=== PATIENT | male | born 1975 | race Hispanic/Latino ===

== ENCOUNTER 2018-05-25 10:06 | Observation (INO) | payer SELFPAY ==
[2018-05-25] MEDS ORDERED: ASPIRIN 81 MG CHEWABLE TABLET ONE (10:33)
[2018-05-25] MEDS ORDERED: NA CHLORIDE 0.9% 1,000 ML ONE (10:33)
[2018-05-25 10:51] LABS: Absolute Lymphocytes (CBC) 2.3 K/uL (0.7-4.9); Absolute Monocytes 1.1 K/uL (0.1-1.3); Absolute Neutrophil 6.9 K/uL (1.8-8.0); Basophils % 0.7 % (0-1.3); Eosinophils % 1.1 % (0-4.4); Hematocrit 37.7 % (39.6-49.0); Lymphocytes % 22.3 % (15.3-44.8); MCH 28.9 pg (27.0-35.0); MCV 84.5 fL (80-100); MPV 8.4 fL (7.6-11.3); Monocytes % 10.2 % (3.3-12.3); RBC Red Blood Cell Count 4.46 M/uL (4.33-5.43)
[2018-05-25] MEDS ORDERED: KETOROLAC 30 MG/ML INJ ONE (10:54)
[2018-05-25 10:57] LABS: Protime INR 1.13
[2018-05-25 11:15] LABS: Albumin 3.6 g/dL (3.4-5.0); Bilirubin Direct 0.1 mg/dL (0-0.2); Bilirubin Total 0.5 mg/dL (0.2-1.0); CKMB Creatine Kinase MB 1.4 ng/mL (0.3-3.6); Magnesium 2.3 mg/dL (1.8-2.4); Potassium 3.4 mmol/L (3.5-5.1); Protein, Total 7.8 g/dL (6.4-8.2)
[2018-05-25 11:52] LABS: Barbiturates NEGATIVE (NEGATIVE); Benzodiazepines NEGATIVE (NEGATIVE); Cocaine NEGATIVE (NEGATIVE); METHAMPHETAM NEGATIVE (NEGATIVE); Methadone NEGATIVE (NEGATIVE); Opiates NEGATIVE (NEGATIVE); Phencyclidine NEGATIVE (NEGATIVE); THC Cannibis POSITIVE (NEGATIVE)
--- NOTE | 2018-05-25 11:57 | RAD REPORT ---
EXAM DESCRIPTION: Joanie Single View05/25/2018 10:47 am CLINICAL HISTORY: Chest pain COMPARISON: November 2017 FINDINGS: The lungs appear clear of acute infiltrate. The heart is normal size IMPRESSION: No acute abnormalities displayed
[2018-05-25] MEDS ORDERED: MORPHINE 4 MG/ML SYR ONE (12:01)
[2018-05-25] MEDS ORDERED: ONDANSETRON 4 MG/2 ML VIAL ONE (12:01)
[2018-05-25] MEDS ORDERED: POTASSIUM 25 MEQ EFFERV TAB ONE (12:24)
[2018-05-25] MEDS ORDERED: ENOXAPARIN 60 MG/0.6 ML SQ ONE (12:24)
[2018-05-25 12:34] LABS: Urine Blood TRACE (NEG); Urine Glucose NEGATIVE (NEG); Urine Protein 1+ (NEG); Urine Specific Gravity >1.030 (1.005-1.030); Urine pH 5.5 (5.0-7.0)
--- NOTE | 2018-05-25 12:39 | EKG ---
Test Date: 2018-05-25 Test Time: 10:39:01 Mule Developer: BETTE MEASUREMENT RESULTS: Intervals: Rate: 59 HI: 136 QRSD: 84 QT: 398 QTc: 394 [place]: P: 30 HI: 136 QRS: 25 T: 36 INTERPRETIVE STATEMENTS: Sinus bradycardia ST elevation, probably due to early repolarization Borderline ECG Compared to ECG 12/16/2016 12:27:35 ST (T wave) deviation now present Early repolarization now present Sinus rhythm no longer present Electronically Signed On 05-25-18 12:39:04 CDT by Sudarshan Metz
--- NOTE | 2018-05-25 13:19 | ER ---
Nurse's Notes [facility] Name: Bill Goodrich Age: 42 yrs Sex: Male : 1975 Arrival Date: 05/25/2018 Time: 10:08 Bed 30 Private MD: Devang Rodriguez V Diagnosis: Other chest pain;Hypokalemia Presentation: 05/25 10:11 Presenting complaint: Patient states: Right sided chest pain, radiates to right arm, jl7 since 829. Transition of care: patient was not received from another setting of care. Onset of symptoms was May 25, 2018 at 08:30. Risk Assessment: Do you want to hurt yourself or someone else? Patient reports no desire to harm self or others. Initial Sepsis Screen: Does the patient meet any 2 criteria? No. Patient's initial sepsis screen is negative. Does the patient have a suspected source of infection? No. Patient's initial sepsis screen is negative. Care prior to arrival: None. 10:11 Method Of Arrival: Ambulatory jl7 10:11 Acuity: PRISCILA 3 jl7 Historical: - Allergies: 10:12 NKA; jl7 - PMHx: 10:12 crohns disease; UC; jl7 - PSHx: 10:12 Appendectomy; jl7 - Immunization history:: Adult Immunizations up to date. - Social history:: Smoking status: Patient/guardian denies using tobacco. - Ebola Screening: : No symptoms or risks identified at this time. - Family history:: not pertinent. Screenin:35 Abuse screen: Denies threats or abuse. Denies injuries from another. Nutritional hb screening: No deficits noted. Tuberculosis screening: No symptoms or risk factors identified. Fall Risk None identified. Assessment: 10:30 General: Appears in no apparent distress. Pain: Complains of pain in anterior aspect of hb right upper chest Pain radiates to right arm Pain currently is 7 out of 10 on a pain scale. Quality of pain is described as pressure, Pain began 1 day ago. Neuro: Level of Consciousness is awake, alert, obeys commands, Oriented to person, place, time, situation. Cardiovascular: Heart tones S1 S2 present Capillary refill < 3 seconds Patient's skin is warm and dry. Respiratory: Airway is patent Trachea midline Respiratory effort is even, unlabored, Respiratory pattern is regular, symmetrical, Breath sounds are clear bilaterally. GI: No signs and/or symptoms were reported involving the gastrointestinal system. : No signs and/or symptoms were reported regarding the genitourinary system. EENT: No signs and/or symptoms were reported regarding the EENT system. Derm: No signs and/or symptoms reported regarding the dermatologic system. Skin is intact, is healthy with good turgor. Musculoskeletal: No signs and/or symptoms reported regarding the musculoskeletal system. 14:45 Reassessment: Patient appears in no apparent distress at this time. No changes from aj previously documented assessment. Patient and/or family updated on plan of care and expected duration. Pain level reassessed. Patient is alert, oriented x 3, equal unlabored respirations, skin warm/dry/pink. Vital Signs: 10:12 BP 115 / 75; Pulse 77; Resp 16 S; Temp 98.4(O); Pulse Ox 100% on R/A; Weight 65.77 kg jl7 (R); Height 5 ft. 5 in. (165.10 cm) (R); Pain 7/10; 11:34 BP 103 / 71; Pulse 56; Resp 19; Pulse Ox 99% on R/A; aj 12:51 BP 120 / 88; Pulse 64; Resp 19; Pulse Ox 100% on R/A; aj 14:14 BP 101 / 73; Pulse 94; Resp 19; Pulse Ox 98% on R/A; aj 10:12 Body Mass Index 24.13 (65.77 kg, 165.10 cm) jl7 ED Course: 10:08 Patient arrived in ED. mr 10:08 Devang Rodriguez MD is Private Physician. mr 10:12 Triage completed. jl7 10:12 Arm band placed on right wrist. jl7 10:18 Ty Dutton MD is Attending Physician. tierra 10:20 Patient has correct armband on for positive identification. Placed in gown. Bed in low hb position. Call light in reach. Side rails up X 1. motor racer on. Pulse ox on. NIBP on. 10:30 Inserted saline lock: 18 gauge in left antecubital area, using aseptic technique. Blood hb collected. Patient maintains SpO2 saturation greater than 95% on room air. 10:38 Klaudia Oneill RN is Primary Nurse. aj 10:43 EKG done, by global position system technician. reviewed by Ty Dutton MD. tc 10:47 XRAY Chest (1 view) In Process Unspecified. EDMS 11:56 EKG done, by global position system technician. reviewed by Ty Dutton MD Repeat EKG. at1 13:18 Devang Rodriguez MD is Hospitalizing Provider. tierra 13:46 Echo w/ Doppler Sent. aj 14:45 No provider procedures requiring assistance completed. Patient admitted, IV remains in aj place. intact. Administered Medications: 10:34 Drug: Aspirin 162 mg Route: PO; hb 10:56 Follow up: Response: No adverse reaction aj 10:34 Drug: NS 0.9% 1000 ml Route: IV; Rate: 125 ml/hr; Site: left antecubital; hb 10:54 Drug: TORadol 30 mg Route: IVP; Site: left antecubital; aj 12:38 Follow up: Response: No adverse reaction aj 11:58 Drug: morphine 4 mg Route: IVP; Site: left antecubital; aj 12:38 Follow up: Response: Pain is decreased aj 11:58 Drug: Zofran 4 mg Route: IVP; Site: left antecubital; aj 12:38 Follow up: Response: Pain is decreased aj 12:38 Drug: Potassium Effervescent Tablet 25 mEq Route: PO; aj 12:54 Follow up: Response: No adverse reaction aj 12:38 Drug: Lovenox 1 mg/kg Route: Sub-Q; Site: left upper abdomen; aj 12:54 Follow up: Response: No adverse reaction aj Outcome: 13:19 Decision to Hospitalize by Provider. tierra 14:45 Admitted to Med/surg accompanied by tech, via wheelchair, room 208, with chart, Report aj called to Sherri 14:45 Condition: good 14:45 Instructed on the need for admit. 15:27 Patient left the ED. iw Signatures: Dispatcher [employer] EDMS Klaudia Oneill, RN Ty Shultz MD MD cha Rivera, Maria mr Williams, Irene, RN RN iw gonzales, Amanda, hvac residential service technician EKG Tat1 Saba Adame, hvac residential service technician EKG Ttc Lexis Barnes RN RN hb Leal, Jahala RN RN jl7
--- NOTE | 2018-05-25 13:19 | EDPHYS ---
Physician Documentation [facility] Name: Bill Goodrich Age: 42 yrs Sex: Male : 1975 Arrival Date: 05/25/2018 Time: 10:08 Bed 30 Private MD: Devang Rodriguez V ED Physician Ty Dutton HPI: 05/25 10:40 This 42 yrs old Male presents to ER via Ambulatory with complaints of Chest tierra Pain, Numbness Of Arm. 10:40 The patient or guardian reports chest pain that is located primarily in the anterior tierra chest wall, right. Onset: 1 day(s) ago. The pain radiates to the right arm. Associated signs and symptoms: Pertinent positives:. The chest pain is described as aching, dull. Modifying factors: The symptoms are alleviated by remaining still, the symptoms are aggravated by movement, palpation of area. The patient has not experienced similar symptoms in the past. Historical: - Allergies: 10:12 NKA; jl7 - PMHx: 10:12 crohns disease; UC; jl7 - PSHx: 10:12 Appendectomy; jl7 - Immunization history:: Adult Immunizations up to date. - Social history:: Smoking status: Patient/guardian denies using tobacco. - Ebola Screening: : No symptoms or risks identified at this time. - Family history:: not pertinent. ROS: 10:40 Constitutional: Negative for fever, chills, and weight loss, Eyes: Negative for injury, tierra pain, redness, and discharge, ENT: Negative for injury, pain, and discharge, Neck: Negative for injury, pain, and swelling, Respiratory: Negative for shortness of breath, cough, wheezing, and pleuritic chest pain, Abdomen/GI: Negative for abdominal pain, nausea, vomiting, diarrhea, and constipation, Back: Negative for injury and pain, : Negative for injury, bleeding, discharge, and swelling, MS/Extremity: Negative for injury and deformity, Skin: Negative for injury, rash, and discoloration, Neuro: Negative for headache, weakness, numbness, tingling, and seizure, Psych: Negative for depression, anxiety, suicide ideation, homicidal ideation, and hallucinations, Allergy/Immunology: Negative for hives, rash, and allergies, Endocrine: Negative for neck swelling, polydipsia, polyuria, polyphagia, and marked weight changes, Hematologic/Lymphatic: Negative for swollen nodes, abnormal bleeding, and unusual bruising. 10:40 Cardiovascular: Positive for chest pain, of the right clavicle, anterior aspect of right upper chest and right breast. Exam: 10:40 Constitutional: This is a well developed, well nourished patient who is awake, alert, tierra and in no acute distress. Head/Face: Normocephalic, atraumatic. Eyes: Pupils equal round and reactive to light, extra-ocular motions intact. Lids and lashes normal. Conjunctiva and sclera are non-icteric and not injected. Cornea within normal limits. Periorbital areas with no swelling, redness, or edema. ENT: Nares patent. No nasal discharge, no septal abnormalities noted. Tympanic membranes are normal and external auditory canals are clear. Oropharynx with no redness, swelling, or masses, exudates, or evidence of obstruction, uvula midline. Mucous membranes moist. Neck: Trachea midline, no thyromegaly or masses palpated, and no cervical lymphadenopathy. Supple, full range of motion without nuchal rigidity, or vertebral point tenderness. No Meningismus. Chest/axilla: Normal chest wall appearance and motion. Nontender with no deformity. No lesions are appreciated. Cardiovascular: Regular rate and rhythm with a normal S1 and S2. No gallops, murmurs, or rubs. Normal PMI, no JVD. No pulse deficits. Respiratory: Lungs have equal breath sounds bilaterally, clear to auscultation and percussion. No rales, rhonchi or wheezes noted. No increased work of breathing, no retractions or nasal flaring. Abdomen/GI: Soft, non-tender, with normal bowel sounds. No distension or tympany. No guarding or rebound. No evidence of tenderness throughout. Back: No spinal tenderness. No costovertebral tenderness. Full range of motion. Skin: Warm, dry with normal turgor. Normal color with no rashes, no lesions, and no evidence of cellulitis. MS/ Extremity: Pulses equal, no cyanosis. Neurovascular intact. Full, normal range of motion. Neuro: Awake and alert, GCS 15, oriented to person, place, time, and situation. Cranial nerves II-XII grossly intact. Motor strength 5/5 in all extremities. Sensory grossly intact. Cerebellar exam normal. Normal gait. Psych: Awake, alert, with orientation to person, place and time. Behavior, mood, and affect are within normal limits. Vital Signs: 10:12 BP 115 / 75; Pulse 77; Resp 16 S; Temp 98.4(O); Pulse Ox 100% on R/A; Weight 65.77 kg 7 (R); Height 5 ft. 5 in. (165.10 cm) (R); Pain 7/10; 11:34 BP 103 / 71; Pulse 56; Resp 19; Pulse Ox 99% on R/A; aj 12:51 BP 120 / 88; Pulse 64; Resp 19; Pulse Ox 100% on R/A; aj 14:14 BP 101 / 73; Pulse 94; Resp 19; Pulse Ox 98% on R/A; aj 10:12 Body Mass Index 24.13 (65.77 kg, 165.10 cm) 7 MDM: 10:18 Patient medically screened. [place] 10:48 Data reviewed: vital signs, nurses notes, lab test result(s), EKG, radiologic studies, tierra plain films. 05/25 10:20 Order name: Basic Metabolic Panel; Complete Time: 11:55 [place] 05/25 10:20 Order name: CBC with Diff; Complete Time: 11:55 [place] 05/25 10:20 Order name: Ckmb; Complete Time: 11:55 [place] 05/25 10:20 Order name: CPK; Complete Time: 11:55 [place] 05/25 10:20 Order name: LFT's; Complete Time: 11:55 [place] 05/25 10:20 Order name: Magnesium; Complete Time: 11:55 [place] 05/25 10:20 Order name: NT PRO-BNP; Complete Time: 11:55 [place] 05/25 10:20 Order name: PT-INR; Complete Time: 11:55 [place] 05/25 10:20 Order name: Ptt, Activated; Complete Time: 11:55 [place] 05/25 10:20 Order name: Troponin (emerg Dept Use Only); Complete Time: 11:55 [place] 05/25 10:20 Order name: UDS; Complete Time: 11:55 [place] 05/25 10:20 Order name: Lipase; Complete Time: 11:55 [place] 05/25 10:39 Order name: D-Dimer; Complete Time: 11:55 [place] 05/25 12:07 Order name: Urine Dipstick--Ancillary (enter results); Complete Time: 13:17 05/25 10:20 Order name: XRAY Chest (1 view); Complete Time: 13:17 [place] 05/25 10:48 Order name: Echo w/ Doppler; Complete Time: 14:52 [place] 05/25 13:17 Order name: Ckmb; Complete Time: 14:52 [place] 05/25 13:17 Order name: Creatine Phosphokinase; Complete Time: 14:52 [place] 05/25 13:17 Order name: Troponin (emerg Dept Use Only); Complete Time: 14:52 [place] 05/25 13:26 Order name: Basic Metabolic Panel EDMS 05/25 13:26 Order name: Basic Metabolic Panel EDMS 05/25 13:26 Order name: CBC with Automated Diff EDMS 05/25 13:26 Order name: CBC with Automated Diff EDMS 05/25 13:26 Order name: Troponin I EDMS 05/25 13:26 Order name: Troponin I EDMS 05/25 13:26 Order name: Troponin I EDMS 05/25 10:20 Order name: EKG; Complete Time: 10:20 [place] 05/25 10:20 Order name: Cardiac monitoring; Complete Time: 10:27 [place] 05/25 10:20 Order name: EKG - Nurse/Tech; Complete Time: 10:27 [place] 05/25 10:20 Order name: IV Saline Lock; Complete Time: 10:27 [place] 05/25 10:20 Order name: Labs collected and sent; Complete Time: 10:27 [place] 05/25 10:20 Order name: O2 Per Protocol; Complete Time: 10:27 [place] 05/25 10:20 Order name: O2 Sat Monitoring; Complete Time: 10:27 [place] 05/25 10:20 Order name: Urine Dipstick-Ancillary (obtain specimen); Complete Time: 11:54 [place] 05/25 11:58 Order name: EKG Electrocardiogram EDMS 05/25 13:17 Order name: Repeat Cardiac Enzymes at: 115pm; Complete Time: 13:27 [place] 05/25 13:24 Order name: CONS Physician Consult EDMS 05/25 13:26 Order name: Regular EDMS 05/25 13:26 Order name: EKG Electrocardiogram EDMS 05/25 13:26 Order name: EKG Electrocardiogram EDMS 05/25 13:26 Order name: EKG Electrocardiogram EDMS 08/13 13:26 Order name: EKG Electrocardiogram EDMS Administered Medications: 10:34 Drug: Aspirin 162 mg Route: PO; hb 10:56 Follow up: Response: No adverse reaction aj 10:34 Drug: NS 0.9% 1000 ml Route: IV; Rate: 125 ml/hr; Site: left antecubital; hb 10:54 Drug: TORadol 30 mg Route: IVP; Site: left antecubital; aj 12:38 Follow up: Response: No adverse reaction aj 11:58 Drug: morphine 4 mg Route: IVP; Site: left antecubital; aj 12:38 Follow up: Response: Pain is decreased aj 11:58 Drug: Zofran 4 mg Route: IVP; Site: left antecubital; aj 12:38 Follow up: Response: Pain is decreased aj 12:38 Drug: Potassium Effervescent Tablet 25 mEq Route: PO; aj 12:54 Follow up: Response: No adverse reaction aj 12:38 Drug: Lovenox 1 mg/kg Route: Sub-Q; Site: left upper abdomen; aj 12:54 Follow up: Response: No adverse reaction aj Disposition: 05/25/18 13:19 Hospitalization ordered by Devang Rodriguez for Observation. Preliminary diagnosis are Other chest pain, Hypokalemia. - Bed requested for Telemetry/MedSurg (observation). - Status is Observation. iw - Condition is Stable. - Problem is new. - Symptoms have improved. UTI on Admission? No Signatures: Dispatcher [employer] EDMS LidaFaby vera Klaudia Spaulding RN RN aj Anderson, Corey, MD MD cha Williams, Irene, RN RN iw Baxter, Heather, RN RN hb Leal, Jahala RN RN jl7 Corrections: (The following items were deleted from the chart) 14:11 13:19 Hospitalization Ordered by Devang Rodriguez MD for Observation. Preliminary diagnosis bd is Other chest pain; Hypokalemia. Bed requested for Telemetry/MedSurg (observation). Status is Observation. Condition is Stable. Problem is new. Symptoms have improved. UTI on Admission? No. tierra 15:27 14:11 05/25/2018 13:19 Hospitalization Ordered by Devang Rodriguez MD for Observation. iw Preliminary diagnosis is Other chest pain; Hypokalemia. Bed requested for Telemetry/MedSurg (observation). Status is Observation. Condition is Stable. Problem is new. Symptoms have improved. UTI on Admission? No. bd
[2018-05-25] MEDS ORDERED: ACETAMINOPHEN 500 MG TAB PO PRN (13:23)
[2018-05-25] MEDS ORDERED: ONDANSETRON 4 MG/2 ML VIAL IV PRN (13:23)
[2018-05-25 13:52] LABS: CKMB Creatine Kinase MB 1.1 ng/mL (0.3-3.6)
--- NOTE | 2018-05-25 17:26 | EKG ---
Test Date: 2018-05-25 Test Time: 11:54:02 Supervising Airplane Pilot: PIERRE MEASUREMENT RESULTS: Intervals: Rate: 55 [place]: 138 QRSD: 88 QT: 430 QTc: 411 [place]: P: 32 [place]: 138 QRS: 30 T: 36 INTERPRETIVE STATEMENTS: Sinus bradycardia ST elevation, probably due to early repolarization Borderline ECG Compared to ECG 05/25/2018 10:39:01 No significant changes Electronically Signed On 05-25-18 17:26:16 CDT by Sudarshan Metz
--- NOTE | 2018-05-25 17:51 | ECHO ---
HEIGHT: 5 ft 5 in WEIGHT: 145 lb 0 oz DATE OF STUDY: 05/25/[address]: 2-DIMENSIONAL: YES M.MODE: YES DOPPLER: YES COLOR FLOW: YES TDS: NO PORTABLE: NO DEFINITY: NO BUBBLE STUDY: NO DIAGNOSIS: CHEST PAIN CARDIAC HISTORY: CATHERIZATION: NO SURGERY: NO PROSTHETIC VALVE: NO PACEMAKER: NO MEASUREMENTS (cm) DIASTOLIC (NORMALS) SYSTOLIC (NORMALS) IVSd 0.8 (0.6-1.2) LA Diam 3.7 (1.9-4.0) LVEF 50% LVIDd 4.6 (3.5-5.7) LVIDs 3.4 (2.0-3.5) %FS 25% LVPWd 0.9 (0.6-1.2) Ao Diam 2.6 (2.0-3.7) 2 DIMENSIONAL ASSESSMENT: RIGHT ATRIUM: NORMAL LEFT ATRIUM: NORMAL RIGHT VENTRICLE: NORMAL LEFT VENTRICLE: NORMAL TRICUSPID VALVE: NORMAL MITRAL VALVE: NORMAL PULMONIC VALVE: NORMAL AORTIC VALVE: NORMAL PERICARDIAL EFFUSION: NONE AORTIC ROOT: NORMAL LEFT VENTRICULAR WALL MOTION: NORMAL. DOPPLER/COLOR FLOW: PHYSIOLOGICAL TRICUSPID REGURGITATION. NORMAL RIGHT VENTRICULAR SYSTOLIC PRESSURE. COMMENTS: NORMAL 2D ECHOCARDIOGRAM WITH DOPPLER. TECHNOLOGIST: ELISE BUSH [facility]
[2018-05-25 18:03] VITALS: BMI 24.0
--- NOTE | 2018-05-25 18:11 | P.HP ---
Certification for Inpatient Patient admitted to: Observation With expected LOS: <2 Midnights Practitioner: I am a practitioner with admitting privileges, knowledge of patient current condition, hospital course, and medical plan of care. Services: Services provided to patient in accordance with Admission requirements found in Title 42 Section 412.3 of the Code of Federal Regulations Patient History Date of Service: 05/25/18 Reason for admission: CHEST PAIN History of Present Illness: MR SOTO IS A NONSMOKER WHO COMES WITH CHEST PAIN R SIDE OFF AND ON 3 TIMES AND THEN WENTTO L SIDE. 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 Allergies No Known Allergies Allergy (Verified 05/25/18 16:34) Home Medications: NK [No Home Meds] 12/16/16 - Past Medical/Surgical History Has patient received pneumonia vaccine in the past: No Diabetic: No -: appendectomy - Family History Mother -: Diabetes Father History Unknown: Yes - Social History Smoking Status: Never smoker Alcohol use: Yes CD- Drugs: No Caffeine use: Yes Place of Residence: Home Review of Systems 10-point ROS is otherwise unremarkable General: Weakness (R HAND WHEN HE HAD PAIN RADIATION TO IT) Physical Examination - Vital Signs Temperature: 97.5 F Blood Pressure: 105/68 Pulse: 61 Respirations: 16 Pulse Ox (%): 99 - Physical Exam General: Alert, In no apparent distress HEENT: Atraumatic, PERRLA, Mucous membr. moist/pink, EOMI, Sclerae nonicteric Neck: Supple, 2+ carotid pulse no bruit, No LAD, Without JVD or thyroid abnormality Respiratory: Clear to auscultation bilaterally, Normal air movement Cardiovascular: Regular rate/rhythm, Normal S1 S2 Gastrointestinal: Normal bowel sounds, No tenderness Musculoskeletal: No tenderness Integumentary: No rashes Neurological: Normal gait, Normal speech, Normal strength at 5/5 x4 extr, Normal tone, Normal affect Lymphatics: No axilla or inguinal lymphadenopathy - Studies Laboratory Data (last 24 hrs) 05/25/18 10:30: PT 13.3 H, INR 1.13, APTT 33.1 05/25/18 10:30: WBC 10.5, Hgb 12.9 L, Hct 37.7 L, Plt Count 504 H 05/25/18 10:30: Sodium 140, Potassium 3.4 L, BUN 11, Creatinine 1.00, Glucose 89 , Magnesium 2.3, Total Bilirubin 0.5, AST 15, ALT 16, Alkaline Phosphatase 70, Lipase 144 Assessment and Plan - Problems (Diagnosis) (1) Chest pain Current Visit: Yes Status: Acute Plan: ATYPICAL BUT RADAITED TO ARM AND THEN TO L SIDE. ST TEST IN AM NOT SMOKER BUT USED [place] (2) Right hand weakness Current Visit: Yes Status: Acute Plan: MRI BRAIN WITHOUT CONTRAST FAMILY NOTED RIGHT EYE PTOSIS AND HE HAD R HAND WEAKNESS. - Advance Directives Does patient have a Living Will: No Does patient have a Durable POA for Healthcare: No
[2018-05-25] MEDS: ENOXAPARIN 60 MG/0.6 ML SQ SCH (21:00)
--- NOTE | 2018-05-25 21:21 | RAD REPORT ---
EXAM DESCRIPTION: MRI - Brain Wo Cont - 05/25/2018 8:25 pm CLINICAL HISTORY: Right hand weakness, possible CVA COMPARISON: None. TECHNIQUE: Sagittal T1-weighted images were obtained along with axial PD, heavily T2-weighted and T2 -FLAIR images. Axial DWI and ADC mapping sequences were also obtained along with coronal heavily T2-w eighted images. FINDINGS: No intracranial hemorrhage, mass or acute infarction. There is no edema or shift of midlin e structures. No extra-axial fluid collections. Deshpande-matter/white matter junction is preserved. Signa l voids are seen as a normal finding in the major intracranial vessels. No atrophy or chronic ischemi c change. No vasculitis or other brain parenchymal abnormality. No globe or orbital content abnormality. Sella and suprasellar regions are normal. Mastoid air cells are clear. Mucosal thickening changes in the bilateral maxillary sinuses. No acute air-fluid level. IMPRESSION: No infarction or acute intracranial finding. Chronic sinus disease.
[2018-05-25] MEDS: POTASSIUM CL SA 10 MEQ TAB PO SCH (21:30)
--- NOTE | 2018-05-25 23:03 | CON ---
Identification: A 42-year-old man. Chief Complaint: Chest pain. History Of Present Illness: Mr. Goodrich had sharp, stabbing type chest pain first in the right pectora l region, later in the left pectoral region. There was no syncope, nausea, vomiting. There was shor tness of breath. No pleuritic component to the pain. He came to the emergency room where EKGs show what looks like early repolarization. Cardiac enzymes are normal. An echocardiogram is normal. The patient has had an appendectomy. He has a history of Crohn disease. He has never had diabetes, hyp ertension, dyslipidemia. Uses no tobacco. Rare alcohol. No illegal drugs. We do not have any old lipid panels on him. There is no history of myocardial infarction, stroke, or any known vascular dis ease. Physical Examination: General: He is alert, oriented, pleasant, not in distress. Vital Signs: 5 feet 5 inches, 144 pounds. HEENT: Normal. Neck: Carotids, no bruit. Lungs: Clear. Cardiac: Normal. Abdomen: Soft. Extremities: Normal. Assessment And Plan: I will recommend that we do a Cardiolite stress test and lipid panel. If we do not see anything there, he can be considered a patient who is safe to discharge home. DARNELL/JOSE Voice ID: [id number] Report ID: [id number]
[2018-05-26 05:57] LABS: Absolute Lymphocytes (CBC) 2.3 K/uL (0.7-4.9); Absolute Monocytes 1.3 K/uL (0.1-1.3); Absolute Neutrophil 7.6 K/uL (1.8-8.0); Basophils % 0.7 % (0-1.3); Eosinophils % 1.3 % (0-4.4); Hematocrit 36.1 % (39.6-49.0); Lymphocytes % 20.1 % (15.3-44.8); MCH 28.3 pg (27.0-35.0); MCV 85.9 fL (80-100); MPV 8.8 fL (7.6-11.3); Monocytes % 11.5 % (3.3-12.3)
[2018-05-26 06:05] LABS: BUN Blood Urea Nitrogen 14 mg/dL (7-18); Bicarbonate 28 mmol/L (21-32); Glucose Level 105 mg/dL (74-106); HDL Cholesterol 29 mg/dL (40-60); LDL Cholesterol, Calculated 35 (<130); Potassium 3.7 mmol/L (3.5-5.1); Sodium Level 142 mmol/L (136-145)
[2018-05-26] MEDS ORDERED: ASPIRIN EC 81 MG TAB PO SCH (09:00)
[2018-05-26] MEDS: ENOXAPARIN 60 MG/0.6 ML SQ SCH (09:00)
[2018-05-26] MEDS: POTASSIUM CL SA 10 MEQ TAB PO SCH (09:43)
[2018-05-26] MEDS: MORPHINE 4 MG/ML SYR IV PRN ×2 (09:53→15:31)
[2018-05-26 11:39] VITALS: O2SAT 95
--- NOTE | 2018-05-26 13:53 | RAD REPORT ---
EXAM DESCRIPTION: NM - Rest Stress Cardiac Imaging - 05/26/2018 1:42 pm CLINICAL HISTORY: Chest pain. COMPARISON: None. TECHNIQUE: The patient was administered approximately 10mCi of Tc 99m Sestamibi prior to resting SPE CT imaging of the heart. The patient was then administered approximately 30 mCi of Tc 99m Sestamibi f ollowing exercise or pharmacologic stress. Multiplanar SPECT images were reviewed. FINDINGS: There is uniformity of radiotracer uptake involving the entire left ventricular myocardium on rest and stress images. The left ventricular ejection fraction equals 53% IMPRESSION: Negative for a myocardial perfusion defect
--- NOTE | 2018-05-26 16:42 | TREADMILL ---
70% H.R.: 123 85% H.R.: 150 90% H.R.: 158 100% H.R.: 176 DX: CHEST PAIN Date of Study: 05/26/2018 Ht: 5 5 Wt: 144 lb 3.2 oz Consulting Physician: KARLI MEDICATIONS: TYLENOL, ASPIRIN, LOVENOX, ZOFRAN, KLOR-CON. HISTORY: 42 YEAR OLD MALE, COMPLAINTS OF CHEST PAIN. MEDICAL HISTORY: CROHNS, ULCERATIVE COLITIS PHYSICIAL EXAMINATION: RESTING B.P.: 118/83 RESTING H.R.: 72 RESTING EKG: NORMAL PROTOCOL: COLLEEN CARDIOLITE EXERCISE TIME: 13:17 MAXIMUM HEART RATE: 157 89 % OF PREDICTED B.P. AT PEAK STRESS: 137/84 H.R. AT 1 MINUTE POST EXERCISE: 111 IMPRESSION: STRESS TEST STOPPED DUE TO FATIGUE AND TARGET HEART RATE RECHED PER PROTOCOL, CARDIOLITE INJECTED, SEE NUCLEAR MED REPORT. NO SUPRAVENTRICULAR TACHYCARDIA, NO VENTRICULAR TACHYCARDIA, 1 PREMATURE VENTRICULAR COMPLEX. DENIED CHEST PAIN. NEGATIVE STRESS TEST
[2018-05-26 18:26] VITALS: BP 102/56; TEMP 98
== END 2018-05-26 18:00 | disposition home or self-care (01) ==
LOC: ER 10:06 → ERHOLD 13:20 → 2ND 14:46
PROVIDERS: ADMIT Internal Medicine; ATTEND Internal Medicine
DX: R07.89 Other chest pain (principal); E87.6 Hypokalemia; R00.1 Bradycardia, unspecified; R53.1 Weakness; Z87.19 Personal history of other diseases of the digestive system
CPT/HCPCS: 36415; 70551; 71045; 78452; 80048; 80061; 80076; 80307; 81003; 82550; 82553; 83690; 83735; 83880; 84484; 85025; 85379; 85610; 85730; 93005; 93017; 93306; 96372; 96374; 96375; 99285; A9500; G0378; J1650; J2405; J7030

== ENCOUNTER 2022-02-05 21:18 | Inpatient (IN) | payer SELFPAY ==
--- NOTE | 2022-02-05 21:54 | RAD REPORT ---
EXAM DESCRIPTION: RAD - Chest Single View - 02/05/2022 9:46 pm CLINICAL HISTORY: COUGH COMPARISON: Chest Single View dated 05/25/2018; Chest Pa And Lat (2 Views) dated 11/21/2017; CHEST SING LE VIEW dated 09/01/2015 FINDINGS: Lines: None. Lungs: No evidence of edema or pneumonia. Pleural: No significant pleural effusions or pneumothorax. Cardiac: The heart size is within normal limits. Bones: No acute fractures. Other: IMPRESSION: No acute cardiopulmonary disease.
[2022-02-05] MEDS ORDERED: ASPIRIN 81 MG CHEWABLE TABLET ONE (21:57)
[2022-02-05] MEDS ORDERED: NA CHLORIDE 0.9% 1,000 ML ONE (21:57)
[2022-02-05 22:01] LABS: Absolute Lymphocytes (CBC) 2.8 K/uL (0.7-4.9); Hematocrit 43.5 % (39.6-49.0); Lymphocytes % 21.4 % (15.3-44.8); MPV 7.9 fL (7.6-11.3); RBC Red Blood Cell Count 5.06 M/uL (4.33-5.43)
[2022-02-05 22:07] LABS: Protime INR 1.09
[2022-02-05 22:26] LABS: AST/SGOT 13 U/L (15-37); Albumin 3.7 g/dL (3.4-5.0); Alkaline Phosphatase 73 U/L (45-117); BUN Blood Urea Nitrogen 8 mg/dL (7-18); Bicarbonate 26 mmol/L (21-32); Bilirubin Total 0.2 mg/dL (0.2-1.0); Lipase 183 U/L (73-393); Magnesium 1.9 mg/dL (1.8-2.4); Potassium 3.3 mmol/L (3.5-5.1); Protein, Total 7.6 g/dL (6.4-8.2); Sodium Level 140 mmol/L (136-145)
[2022-02-05 22:30] LABS: ALT/SGPT 18 U/L (12-78); Bilirubin Direct < 0.1 mg/dL (0-0.2); Glucose Level 119 mg/dL (74-106); NT PRO-BNP 25 pg/mL (<125); Troponin High Sensitivity 3.3 pg/mL (<58.9)
[2022-02-05] MEDS ORDERED: MORPHINE 2 MG/ML SYR ONE (22:46)
[2022-02-05] MEDS ORDERED: POTASSIUM 25 MEQ EFFERV TAB ONE (22:46)
[2022-02-05] MEDS ORDERED: FAMOTIDINE 20 MG/2 ML VIAL IV ONE (22:46)
[2022-02-05] MEDS ORDERED: ONDANSETRON 4 MG/2 ML VIAL ONE (22:46)
--- NOTE | 2022-02-05 23:06 | ER ---
Nurse's Notes [facility] Name: Bill Goodrich Age: 46 yrs Sex: Male : 1975 Arrival Date: 02/05/2022 Time: 21:20 Bed 15 Private MD: Diagnosis: Chest pain, unspecified;Hypokalemia;Left sided colitis without complications Presentation: 02/05 21:44 Chief complaint: Patient states: Sudden onset chest pain radiating down left arm that lp1 began about 30-45 min ago; Reports LLQ abdominal pain. Coronavirus screen: At this time, the client does not indicate any symptoms associated with coronavirus-19. Ebola Screen: No symptoms or risks identified at this time. Initial Sepsis Screen: Does the patient meet any 2 criteria? No. Patient's initial sepsis screen is negative. Does the patient have a suspected source of infection? No. Patient's initial sepsis screen is negative. Risk Assessment: Do you want to hurt yourself or someone else? Patient reports no desire to harm self or others. Onset of symptoms was February 05, 2022. 21:44 Method Of Arrival: Ambulatory lp1 21:44 Acuity: PRISCILA 3 lp1 Historical: - Allergies: 21:47 NKA; lp1 - Home Meds: 21:47 None [Active]; lp1 - PMHx: 21:47 crohns disease; UC; lp1 - PSHx: 21:47 Appendectomy; lp1 - Immunization history:: Adult Immunizations up to date. - Social history:: Smoking status: Patient denies any tobacco usage or history of. - Family history:: not pertinent. Screenin/27 03:41 Abuse screen: Denies threats or abuse. Denies injuries from another. Nutritional sm5 screening: No deficits noted. Tuberculosis screening: No symptoms or risk factors identified. Fall Risk None identified. Assessment: 02/05 22:30 General: Appears uncomfortable, Behavior is cooperative. Pain: Complains of pain in sm5 left upper quadrant and chest Pain radiates to anterior aspect of left shoulder Pain began suddenly. Neuro: No deficits noted. Level of Consciousness is awake, alert, obeys commands, Oriented to person, place, time, situation. Cardiovascular: Reports chest pain, Capillary refill < 3 seconds Patient's skin is warm and dry. Rhythm is sinus rhythm. 23:45 Reassessment: No changes from previously documented assessment. Patient and/or family 5 updated on plan of care and expected duration. Pain level reassessed. 02/06 00:43 Reassessment: pt refusing covid swab. sm5 01:25 Reassessment: No changes from previously documented assessment. Patient is alert, 5 oriented x 3, equal unlabored respirations, skin warm/dry/pink. 03:42 Reassessment: Patient states symptoms have improved. 5 Vital Signs: 02/05 21:44 BP 116 / 86; Pulse 70; Resp 15; Temp 98.2(O); Pulse Ox 100% on R/A; Weight 68.04 kg lp1 (R); Height 5 ft. 5 in. (165.10 cm); Pain 7/10; 22:38 BP 116 / 82; Pulse 58; Resp 14; Pulse Ox 96% on R/A; sm5 23:32 BP 133 / 95; Pulse 64; Resp 16; Pulse Ox 99% on R/A; sm5 02/06 03:47 BP 118 / 72; Pulse 62; Resp 16; Pulse Ox 96% on R/A; sm5 02/05 21:44 Body Mass Index 24.96 (68.04 kg, 165.10 cm) lp1 ED Course: 02/05 21:20 Patient arrived in ED. bp1 21:26 Ty Dutton MD is Attending Physician. tierra 21:37 Laney Quick RN is Primary Nurse. sm5 21:44 Arm band placed on. lp1 21:45 Inserted saline lock: 20 gauge in left antecubital area, using aseptic technique. Blood 5 collected. 21:47 Triage completed. lp1 21:47 Patient has correct armband on for positive identification. Placed in gown. Bed in low lp1 position. Call light in reach. laboratory monitor on. Pulse ox on. NIBP on. 21:47 Patient maintains SpO2 saturation greater than 95% on room air. lp1 21:48 XRAY Chest (1 view) In Process Unspecified. EDMS 23:05 Devang Rodriguez MD is Hospitalizing Provider. [facility] 02/06 02:21 COVID-19/FLU A+B (Document "Date of Onset" if Symptomatic) Sent. 5 04:23 No provider procedures requiring assistance completed. Patient admitted, IV remains in [address] Administered Medications: 02/05 21:55 Drug: Aspirin Chewable Tablet 162 mg Route: PO; 5 22:52 Follow up: Response: No adverse reaction 5 21:55 Drug: NS 0.9% 1000 ml Route: IV; Rate: 125 ml/hr; Site: left antecubital; 5 22:40 CANCELLED (Duplicate Order): Lopressor (metoprolol TARTRATE)) 25 mg PO once tierra 22:50 Drug: Potassium Effervescent Tablet 25 mEq Route: PO; 5 02/06 03:50 Follow up: Response: No adverse reaction [facility] 02/05 22:51 Drug: Pepcid (famotidine) 20 mg Route: IVP; Site: left antecubital; 5 22:51 Drug: morphine 2 mg Route: IVP; Site: left antecubital; 5 02/06 03:50 Follow up: Response: Pain is decreased 5 02/05 22:51 Drug: Zofran (Ondansetron) 4 mg Route: IVP; Site: left antecubital; 5 02/06 03:50 Follow up: Response: Nausea is decreased 5 00:39 Drug: Lovenox (enoxaparin) 1 mg/kg Route: Sub-Q; Site: right upper abdomen; 5 03:50 Follow up: Response: No adverse reaction 5 00:39 Drug: Flagyl (metroNIDAZOLE) 500 mg Volume: 100 ml; Route: IVPB; Rate: 200 ml/hr; sm5 Infused Over: 30 mins; Site: left antecubital; 01:28 Follow up: IV Status: Completed infusion; IV Intake: 100ml 5 00:39 Drug: SOLU-Medrol (methylPrednisoLONE) 125 mg Route: IVP; Site: left antecubital; 5 03:49 Follow up: Response: No adverse reaction 5 02:39 Drug: Cipro (ciprofloxacin) 400 mg Volume: 200 ml; Route: IVPB; Infused Over: 60 mins; 5 Site: left antecubital; 03:49 Follow up: IV Status: Completed infusion; IV Intake: 200ml 5 Intake: 01:28 IV: 100ml; Total: 100ml. 5 03:49 IV: 200ml; Total: 300ml. [facility] Outcome: 02/05 23:06 Decision to Hospitalize by Provider. tierra 02/06 04:24 Admitted to Med/surg accompanied by nurse, via wheelchair, with chart. sm5 Condition: stable Instructed on the need for admit. 04:24 Patient left the ED. sm5 Signatures: Dispatcher [employer] Ty Mendez MD MD cha Pena, Laura, RN RN lp1 Elaine Salmon Sarah, RN RN sm5
--- NOTE | 2022-02-05 23:06 | EDPHYS ---
Physician Documentation [facility] Name: Bill Goodrich Age: 46 yrs Sex: Male : 1975 Arrival Date: 02/05/2022 Time: 21:20 Bed 15 Private MD: ED Physician Ty Dutton HPI: 02/05 22:33 This 46 yrs old Male presents to ER via Ambulatory with complaints of Chest tierra Pain > 30 y/o. 22:33 The patient or guardian reports chest pain that is located primarily in the substernal tierra area. Onset: just prior to arrival. The pain radiates to the left arm. Associated signs and symptoms: Pertinent positives: shortness of breath. The chest pain is described as a heaviness. Duration: The patient or guardian reports multiple episodes, with no pattern. Modifying factors: The symptoms are alleviated by nothing. the symptoms are aggravated by nothing. Severity of pain: At its worst the pain was mild just prior to arrival, in the emergency department the pain has improved mildly. The patient has experienced similar episodes in the past, a few times. Historical: - Allergies: 21:47 NKA; lp1 - Home Meds: 21:47 None [Active]; lp1 - PMHx: 21:47 crohns disease; UC; lp1 - PSHx: 21:47 Appendectomy; lp1 - Immunization history:: Adult Immunizations up to date. - Social history:: Smoking status: Patient denies any tobacco usage or history of. - Family history:: not pertinent. ROS: 22:33 Constitutional: Negative for fever, chills, and weight loss, Eyes: Negative for injury, tierra pain, redness, and discharge, ENT: Negative for injury, pain, and discharge, Neck: Negative for injury, pain, and swelling, Respiratory: Negative for shortness of breath, cough, wheezing, and pleuritic chest pain, Back: Negative for injury and pain, : Negative for injury, bleeding, discharge, and swelling, MS/Extremity: Negative for injury and deformity, Skin: Negative for injury, rash, and discoloration, Neuro: Negative for headache, weakness, numbness, tingling, and seizure, Psych: Negative for depression, anxiety, suicide ideation, homicidal ideation, and hallucinations, Allergy/Immunology: Negative for hives, rash, and allergies, Endocrine: Negative for neck swelling, polydipsia, polyuria, polyphagia, and marked weight changes, Hematologic/Lymphatic: Negative for swollen nodes, abnormal bleeding, and unusual bruising. 22:33 Cardiovascular: Positive for chest pain, of the chest. 22:33 Abdomen/GI: Positive for abdominal pain, of the left upper quadrant. Exam: 22:33 Constitutional: This is a well developed, well nourished patient who is awake, alert, tierra and in no acute distress. Head/Face: Normocephalic, atraumatic. Eyes: Pupils equal round and reactive to light, extra-ocular motions intact. Lids and lashes normal. Conjunctiva and sclera are non-icteric and not injected. Cornea within normal limits. Periorbital areas with no swelling, redness, or edema. ENT: Nares patent. No nasal discharge, no septal abnormalities noted. Tympanic membranes are normal and external auditory canals are clear. Oropharynx with no redness, swelling, or masses, exudates, or evidence of obstruction, uvula midline. Mucous membranes moist. Neck: Trachea midline, no thyromegaly or masses palpated, and no cervical lymphadenopathy. Supple, full range of motion without nuchal rigidity, or vertebral point tenderness. No Meningismus. Chest/axilla: Normal chest wall appearance and motion. Nontender with no deformity. No lesions are appreciated. Cardiovascular: Regular rate and rhythm with a normal S1 and S2. No gallops, murmurs, or rubs. Normal PMI, no JVD. No pulse deficits. Respiratory: Lungs have equal breath sounds bilaterally, clear to auscultation and percussion. No rales, rhonchi or wheezes noted. No increased work of breathing, no retractions or nasal flaring. Back: No spinal tenderness. No costovertebral tenderness. Full range of motion. Male : Normal genitalia with no discharge or lesions. Skin: Warm, dry with normal turgor. Normal color with no rashes, no lesions, and no evidence of cellulitis. MS/ Extremity: Pulses equal, no cyanosis. Neurovascular intact. Full, normal range of motion. Neuro: Awake and alert, GCS 15, oriented to person, place, time, and situation. Cranial nerves II-XII grossly intact. Motor strength 5/5 in all extremities. Sensory grossly intact. Cerebellar exam normal. Normal gait. Psych: Awake, alert, with orientation to person, place and time. Behavior, mood, and affect are within normal limits. 22:33 ECG was reviewed by the Attending Physician. 22:33 Abdomen/GI: Inspection: abdomen appears normal, Bowel sounds: normal, Palpation: mild abdominal tenderness, in the left upper quadrant, Liver: no appreciated palpable abnormalities, Hernia: not appreciated. Vital Signs: 21:44 BP 116 / 86; Pulse 70; Resp 15; Temp 98.2(O); Pulse Ox 100% on R/A; Weight 68.04 kg lp1 (R); Height 5 ft. 5 in. (165.10 cm); Pain 7/10; 22:38 BP 116 / 82; Pulse 58; Resp 14; Pulse Ox 96% on R/A; sm5 23:32 BP 133 / 95; Pulse 64; Resp 16; Pulse Ox 99% on R/A; sm5 02/06 03:47 BP 118 / 72; Pulse 62; Resp 16; Pulse Ox 96% on R/A; sm5 02/05 21:44 Body Mass Index 24.96 (68.04 kg, 165.10 cm) lp1 MDM: 02/05 21:26 Patient medically screened. tierra 22:36 Differential diagnosis: acute myocardial infarction, acute pericarditis, anxiety, chest tierra wall pain, costochondritis, pancreatitis, pleurisy, pulmonary embolus, stable angina, thoracic aortic disection, unstable angina. HEART Score: History: Moderately Suspicious (1), ECG: Normal (0), Age: > 45 and < 65 years (1), Risk Factors: 1 or 2 risk factors (1), [+ Family HX] Troponin: < or = 1 x Normal Limit (0). The patient was given aspirin in the Emergency Department. The patient's deep vein thrombosis risk score was calculated as follows: Total Score: 0. This patient was found to be at low risk for a deep vein thrombosis by using the Well's assessment criteria. The patient's pulmonary embolism risk score was calculated as follows: Total Score: 0-2 points. This patient was found to be at low risk for a pulmonary embolism by using the Well's assessment criteria. ETHEL Risk Score: TOTAL SCORE = 0. Data reviewed: vital signs, nurses notes, lab test result(s), EKG, radiologic studies, CT scan, plain films. Data interpreted: laboratory monitor: rate is 70 beats/min, rhythm is regular, Pulse oximetry: on room air is 100 %. Test interpretation: by ED physician or midlevel provider: ECG, plain radiologic studies. Counseling: I had a detailed discussion with the patient and/or guardian regarding: the historical points, exam findings, and any diagnostic results supporting the discharge/admit diagnosis, lab results, radiology results, the need for further work-up and treatment in the hospital. 02/05 21: Order name: Basic Metabolic Panel; Complete Time: 22:41 [facility] 02/05 21: Order name: CBC with Diff; Complete Time: 22:30 [facility] 02/05 21: Order name: LFT's; Complete Time: 22:41 [facility] 02/05 21: Order name: Magnesium; Complete Time: 22:41 [facility] 02/05 21: Order name: NT PRO-BNP; Complete Time: 22:41 [facility] 02/05 21:27 Order name: PT-INR; Complete Time: 22:30 [facility] 02/05 21:27 Order name: Troponin HS; Complete Time: 22:41 [facility] 02/05 21:27 Order name: Lipase; Complete Time: 22:41 [facility] 02/05 23:47 Order name: COVID-19/FLU A+B (Document "Date of Onset" if Symptomatic) [facility] 02/06 00:04 Order name: Fecal Leukocyte Stain [facility] 02/06 00:04 Order name: Stool Culture [facility] 02/06 03:14 Order name: COVID-19/FLU A+B [facility] 02/06 04:24 Order name: Fecal Leukocyte Stain [facility] 02/06 04:24 Order name: Stool Culture [facility] 02/05 21:27 Order name: XRAY Chest (1 view); Complete Time: 22:30 [facility] 02/05 21:27 Order name: EKG; Complete Time: 21:28 [facility] 02/05 21:27 Order name: Cardiac monitoring; Complete Time: 21:43 [facility] 02/05 22:32 Order name: CT Aorta for Dissection [facility] 02/05 23:10 Order name: CONS Physician Consult [facility] 02/05 21:27 Order name: EKG - Nurse/Tech; Complete Time: 21:43 [facility] 02/05 21:27 Order name: IV Saline Lock; Complete Time: 22:03 [facility] 04/26 21:27 Order name: Labs collected and sent; Complete Time: 22:03 [facility] 02/05 Order name: O2 Per Protocol; Complete Time: : [facility] 02/05 Order name: O2 Sat Monitoring; Complete Time: : [facility] EC:33 Rate is 74 beats/min. Rhythm is regular. QRS [place] is Normal. [place] interval is normal. QRS tierra interval is normal. QT interval is normal. No Q waves. T waves are Normal. No ST changes noted. Clinical impression: NSR w/ Non-specific ST/T Changes and No evidence of ischemia. Interpreted by me. Reviewed by me. Administered Medications: : Drug: Aspirin Chewable Tablet 162 mg Route: PO; sm5 22:52 Follow up: Response: No adverse reaction 5 :55 Drug: NS 0.9% 1000 ml Route: IV; Rate: 125 ml/hr; Site: left antecubital; sm5 22:40 CANCELLED (Duplicate Order): Lopressor (metoprolol TARTRATE)) 25 mg PO once [facility] 22:50 Drug: Potassium Effervescent Tablet 25 mEq Route: PO; 5 02/06 03:50 Follow up: Response: No adverse reaction 02/05 22:51 Drug: Pepcid (famotidine) 20 mg Route: IVP; Site: left antecubital; sm5 22:51 Drug: morphine 2 mg Route: IVP; Site: left antecubital; 5 02/06 03:50 Follow up: Response: Pain is decreased 02/05 22:51 Drug: Zofran (Ondansetron) 4 mg Route: IVP; Site: left antecubital; 5 02/06 03:50 Follow up: Response: Nausea is decreased sm5 00:39 Drug: Lovenox (enoxaparin) 1 mg/kg Route: Sub-Q; Site: right upper abdomen; sm5 03:50 Follow up: Response: No adverse reaction sm5 00:39 Drug: Flagyl (metroNIDAZOLE) 500 mg Volume: 100 ml; Route: IVPB; Rate: 200 ml/hr; sm5 Infused Over: 30 mins; Site: left antecubital; 01:28 Follow up: IV Status: Completed infusion; IV Intake: 100ml sm5 00:39 Drug: SOLU-Medrol (methylPrednisoLONE) 125 mg Route: IVP; Site: left antecubital; sm5 03:49 Follow up: Response: No adverse reaction 5 02:39 Drug: Cipro (ciprofloxacin) 400 mg Volume: 200 ml; Route: IVPB; Infused Over: 60 mins; sm5 Site: left antecubital; 03:49 Follow up: IV Status: Completed infusion; IV Intake: 200ml 5 Disposition Summary: 02/05/22 23:06 Hospitalization Ordered Hospitalization Status: Observation tierra Provider: Devang Rodriguez cha Location: Telemetry/MedSurg (observation) tierra Condition: Stable tierra Problem: new tierra Symptoms: have improved tierra Bed/Room Type: Standard [facility] Room Assignment: 228(02/06/22 03:22) mw Diagnosis - Chest pain, unspecified tierra - Hypokalemia tierra - Left sided colitis without complications tierra Forms: - Medication Reconciliation Form tierra - SBAR form tierra Signatures: Dispatcher [employer] EDMarie Rajan RN RN mw Anderson, Corey, MD MD cha Pena, Laura, RN RN lp1 Laney Quick RN RN sm5 Corrections: (The following items were deleted from the chart) 02/05 22:40 22:32 Lopressor (metoprolol TARTRATE)) 25 mg PO once ordered. tierra mayorga 02/06 03:22 02/05 23:06 tierra colón
[2022-02-06] MEDS ORDERED: METHYLPREDNISOLONE 125 MG INJ ONE (00:32)
[2022-02-06] MEDS ORDERED: ENOXAPARIN 60 MG/0.6 ML SQ ONE (00:33)
[2022-02-06] MEDS ORDERED: METRONIDAZOLE 500mg IVPB 500 MG/100 ML BAG IV ONE (00:33)
[2022-02-06] MEDS ORDERED: NA CHLORIDE 0.9% 1,000 ML IV SCH (01:00)
[2022-02-06] MEDS ORDERED: CIPROFLOXACIN 400mg IV 400 MG/200 ML BAG IV ONE (02:35)
[2022-02-06] MEDS ORDERED: ENOXAPARIN 80 MG/0.8 ML SQ ONE (02:57)
[2022-02-06 03:14] LABS: SARS-COV-2 RT PCR NEGATIVE (NEGATIVE)
[2022-02-06] MEDS ORDERED: ONDANSETRON 4 MG/2 ML VIAL IV PRN (04:22)
[2022-02-06] MEDS ORDERED: ACETAMINOPHEN 500 MG TAB PO PRN (04:22)
[2022-02-06] MEDS ORDERED: MORPHINE 4 MG/ML SYR IV PRN (04:22)
[2022-02-06] MEDS ORDERED: ACETAMINOPHEN 325 MG TABLET PO PRN (05:00)
[2022-02-06] MEDS: METHYLPREDNISOLONE 40 MG INJ IV SCH ×3 (05:48→17:11)
[2022-02-06] MEDS: METRONIDAZOLE 500mg IVPB 500 MG/100 ML BAG IV SCH ×3 (05:48→17:11)
[2022-02-06 06:22] LABS: Absolute Lymphocytes (CBC) 1.1 K/uL (0.7-4.9); Hematocrit 43.8 % (39.6-49.0); Lymphocytes % 8.2 % (15.3-44.8); MPV 8.6 fL (7.6-11.3); RBC Red Blood Cell Count 4.96 M/uL (4.33-5.43)
[2022-02-06 06:23] LABS: BUN Blood Urea Nitrogen 9 mg/dL (7-18); Bicarbonate 25 mmol/L (21-32); Glucose Level 145 mg/dL (74-106); Potassium 3.7 mmol/L (3.5-5.1); Sodium Level 139 mmol/L (136-145)
[2022-02-06 06:35] VITALS: BMI 25.0
[2022-02-06] MEDS ORDERED: CIPROFLOXACIN 400mg IV 400 MG/200 ML BAG IV SCH (09:00)
[2022-02-06] MEDS ORDERED: FAMOTIDINE 20 MG/2 ML VIAL IV SCH (09:00)
[2022-02-06 09:21] VITALS: O2SAT 98
[2022-02-06 09:25] LABS: Platelet Estimate INCR; White Blood Cell Scan OK (OK)
[2022-02-06 09:32] LABS: Blood Morphology Comment NOT SEEN (NOT SEEN)
[2022-02-06] MEDS: POTASSIUM 25 MEQ EFFERV TAB PO SCH ×2 (09:52→15:46)
[2022-02-06] MEDS: ASPIRIN EC 81 MG TAB PO SCH (09:53)
--- NOTE | 2022-02-06 13:21 | ECHO ---
HEIGHT: 5 ft 5 in WEIGHT: 150 lb 0 oz DATE OF STUDY: 02/06/[address]: Robert Villarreal MD 2-DIMENSIONAL: YES M.MODE: YES DOPPLER: YES COLOR FLOW: YES TDS: NO PORTABLE: YES DEFINITY: NO BUBBLE STUDY: NO DIAGNOSIS: CHEST PAIN CARDIAC HISTORY: CATHERIZATION: NO SURGERY: NO PROSTHETIC VALVE: NO PACEMAKER: NO MEASUREMENTS (cm) DIASTOLIC (NORMALS) SYSTOLIC (NORMALS) IVSd 0.9 (0.6-1.2) LA Diam 2.8 (1.9-4.0) LVEF 69% LVIDd 3.5 (3.5-5.7) LVIDs 2.2 (2.0-3.5) %FS 38% LVPWd 0.9 (0.6-1.2) Ao Diam 2.6 (2.0-3.7) 2 DIMENSIONAL ASSESSMENT: RIGHT ATRIUM: NORMAL LEFT ATRIUM: NORMAL RIGHT VENTRICLE: NORMAL LEFT VENTRICLE: NORMAL TRICUSPID VALVE: NORMAL MITRAL VALVE: NORMAL PULMONIC VALVE: NORMAL AORTIC VALVE: NORMAL PERICARDIAL EFFUSION: NONE AORTIC ROOT: NORMAL LEFT VENTRICULAR WALL MOTION: NORMAL. DOPPLER/COLOR FLOW: NORMAL. COMMENTS: NORMAL 2D ECHO WITH DOPPLER. NO WALL MOTION ABNORMALITY. NO EFFUSION. TECHNOLOGIST: ANA RESENDEZ
[2022-02-06 13:29] VITALS: TEMP 97.6
--- NOTE | 2022-02-06 15:23 | RAD REPORT ---
EXAM DESCRIPTION: CT - Angio Aorta For Dissection - 02/06/2022 7:00 am CLINICAL HISTORY: 46 years, Male, chest pain COMPARISON: None. TECHNIQUE: Multiple transaxial tomograms from the thoracic and abdominal aorta from the lung apex ba ses to the ischial tuberosities performed before and after the administration of 100 cc of Omnipaque 350 at a rate of 5 cc per second for complete opacification of the thoracic, abdominal aorta and david c arteries utilizing 2 mm slice thickness at 2 mm slice thickness. 2-D and 3-D multiplanar reformats, volume rendering technique and maximum intensity projection images were generated and reviewed. This exam was performed according to our departmental dose-optimization protocol, which includes auto mated exposure control, adjustment of the mA and/or kV according to patient size and/or use of iterat oskar reconstruction technique. FINDINGS: Thoracic aorta: The thoracic aorta demonstrate to be within normal limits. No definitive significant dissection and/o r aneurysm allowing for the motion at the ascending thoracic aorta/aortic root. There is normal branc angelita pattern of the great vessels. No significant stenosis/or occlusion within the proximal aspect. Abdominal aorta: The abdominal aorta demonstrate to be normal. There is no evidence for aneurysm/or dissection. Bilate ral iliac arteries demonstrate to be normal. There is normal branching pattern of the visceral branch es with no evidence for significant stenosis/or occlusion. There is single bilateral renal arteries w ith no abnormalities. Chest: The lung parenchyma demonstrate to be clear. No symptom pulmonary nodules/or masses are identi fied. Minimal dependent atelectatic changes posterior CP angles. The trachea mainstem bronchus demonstrate to be unremarkable. There is no pleural and/or pericardial effusions. The heart is normal in size. No significant coronary artery calcifications. There is no evidence for significant filling defects central pulmonary arteries to suggest significant pulmonary embolus. There is no significant mediastinal and/or hilar lymphadenopathy. The axillary regions demonstrate to be clear. The bone windows demonstrate no significant skeletal lesions. Abdomen and pelvis: The liver demonstrate slight decreased attenuation suggesting mild fatty infiltra tion. Milvia liver, gallbladder, spleen, adrenal glands, pancreas demonstrate to be unremarkable. The kidneys demonstrate normal uptake of contrast media. There is no evidence for nephrolithiasis and /or hydronephrosis. Grossly the unopacified stomach, small bowel demonstrate to be within normal limits. There is no evid ence for bowel dilatation/or free air. The large bowel demonstrate fluid-filled within the right site colon. There is mucosal enhancement of the distal descending colon, sigmoid colon and rectum suggesting the possibility of bacterial coliti s and/or regional enteritis. The bladder is normal. The prostate gland is prominent perhaps related to BPH. There is no retroper itoneal lymphadenopathy. There is no evidence for ascites. The bone windows demonstrate unremarkable. IMPRESSION: No evidence for significant dissection and/or aneurysm thoracic or abdominal aorta. Mucosal enhancement of the distal descending colon, sigmoid colon and rectum suggesting the possibili ty of bacterial colitis, less likely pseudomembranous colitis and/or regional enteritis. Prominent prostate gland perhaps related to BPH. Electronically signed by: Carlos Chaidez MD 02/05/2022 11:47 PM CDT Due to temporary technical issues with the PACS/Fluency reporting system, reports are being signed by the in house radiologists without review as a courtesy to insure prompt reporting. The interpreting radiologist is fully responsible for the content of the report.
[2022-02-06 16:46] VITALS: BP 115/70
--- NOTE | 2022-02-06 17:08 | P.SSS ---
Patient History Date of Service: 02/06/22 Reason for admission: CHEST PAIN AND ARM BURNING History of Present Illness: DARLENE HAS CROHN'S DISEASE AND HAS NOT TO ANY DOCTOR FOR LAST 4 YEARS. HE COMES TO ER AND CLAIMS ME HIS DOCTOR. HE WAS ADMITTED AT NIGHT BY DR. SWAN. HE HAS PAIN IN CHEST AND L ARM BURNING FOR A DAY. Sunny CACERES SAW HIM AND ADVISED OUTPATIENT STRESS TEST. HIS ECHO IS GOOD. CE ARE NEGATIVE AND EKG IS NORMAL. HE HAS MILD HIGH WBC COUNT AND COLITIS LIKE PICTURE ON CT SCAN WITHOUT ANY ABDOMEN SYMPTOMS. I GAVE HIM CEFTIN FOR A FEW DAYS HAS MILD HIGH WBC COUNT. HE WILL COME TO OFFICE IN A WEEK AND WILL REPEAT COUNTS. HE MAY NOT COME HE HAS NO INSURANCE. Allergies No Known Allergies Allergy (Verified 05/25/18 16:34) Home medications list reviewed: Yes Home Medications: Cefuroxime [Ceftin] 250 mg PO BID #14 tab 02/06/22 - Past Medical/Surgical History Has patient received pneumonia vaccine in the past: No Diabetic: No -: Crohns -: Ulcerative Colitis -: appendectomy - Family History Mother -: Hypertension, Diabetes Sister -: Other (see notes) Notes: one sister has graves, one sister needs regular blood transfusions but pt is unsure of reason - Social History Smoking Status: Never smoker Alcohol use: Yes CD- Drugs: No Caffeine use: Yes Place of Residence: Home Physical Examination - Vital Signs Temperature: 97.6 F Blood Pressure: 115/70 Pulse: 77 Respirations: 18 Pulse Ox (%): 92 - Physical Exam General: Alert, Oriented x3 HEENT: Atraumatic, PERRLA, Mucous membr. moist/pink, EOMI, Sclerae nonicteric Neck: Supple, 2+ carotid pulse no bruit, No LAD, Without JVD or thyroid abnormality Respiratory: Clear to auscultation bilaterally Cardiovascular: Regular rate/rhythm, Normal S1 S2 Gastrointestinal: Normal bowel sounds, No tenderness Musculoskeletal: No tenderness Integumentary: No rashes Neurological: Normal gait, Normal speech, Normal strength at 5/5 x4 extr, Normal tone, Normal affect Lymphatics: No axilla or inguinal lymphadenopathy - Studies Laboratory Data (last 24 hrs) 02/06/22 05:25: Sodium 139, Potassium 3.7, BUN 9, Creatinine 0.84, Glucose 145 H 02/06/22 05:25: WBC 12.9 H, Hgb 14.4, Hct 43.8, Plt Count 461 H 02/05/22 21:50: PT 12.0, INR 1.09 02/05/22 21:50: WBC 13.0 H, Hgb 14.8, Hct 43.5, Plt Count 452 H 02/05/22 21:50: Sodium 140, Potassium 3.3 L, BUN 8, Creatinine 1.07, Glucose 119 H, Magnesium 1.9, Total Bilirubin 0.2, AST 13 L, ALT 18, Alkaline Phosphatase 73, Lipase 183 - Diagnosis (Problem(s)) (1) Leukocytosis Current Visit: Yes Status: Acute Plan: CEFTIN PO BID. (2) Chest pain Onset Date: 05/26/18 Current Visit: No Status: Acute Plan: ATYPICAL PAIN. CHEST PAIN. DR. CACERES IS NOT IMPRESSED. - Disposition Disposition: ROUTINE DISCHARGE Condition: FAIR
[2022-02-06] MEDS ORDERED: FAMOTIDINE 20 MG TAB PO SCH (21:00)
[2022-02-06] MEDS ORDERED: ENOXAPARIN 60 MG/0.6 ML SQ SCH (21:00)
--- NOTE | 2022-02-07 00:30 | CON ---
Date of Consultation: 02/06/2022 The patient was admitted on 02/05/[address] Rodriguez's service with chest pain and hypokalemia. History Of Present Illness: Mr. Goodrich is 46 and has a history of Crohn disease, otherwise no past me dical history. He came in with left shoulder and right shoulder pain, midepigastric pain described a s tightness and discomfort without any nausea, vomiting, diaphoresis, PND, orthopnea, pedal edema, pa lpitations, or syncope. Symptoms occurred at rest and when he wakes up in the morning. Denied any e xertional symptoms. Denied any fever or chills. He is not taking any medications for his Crohn's at this point. Past Medical History: Include Crohn disease. Allergies: NONE. Medications: None. Review of Systems: Negative. Social History: Negative. Family History: Noncontributory. Physical Examination: Vital Signs: Stable, afebrile. HEENT: Negative. Neck: Supple. No bruit. Chest: Clear. Cardiac: Exam reveals a regular rhythm and rate. No murmurs, gallops, or rubs. Abdomen: Benign. Extremities: Revealed no clubbing, cyanosis, or edema. Data Reviewed: Diagnostic data within normal limits. Impression And Plan: Atypical chest pain, possibly related to Crohn disease or an inflammatory proce ss, reflux disease is possible. Echocardiogram is normal. I am comfortable with Mr. Goodrich going henry e and I will arrange for him to have an outpatient MPI at his convenience. The case was discussed wi Dr. Rodriguez. STU/BROCKL Voice ID: [id number] Report ID: [id number]
== END 2022-02-06 18:17 | disposition home or self-care (01) | DRG 313 ==
LOC: ER 21:18 → ERHOLD 23:07 → 2ND 02-06 03:57 → OBSVTOIN 02-06 08:00
PROVIDERS: ADMIT Internal Medicine; ATTEND Internal Medicine
DX: R07.89 Other chest pain (principal); K52.9 Noninfective gastroenteritis and colitis, unspecified; E87.6 Hypokalemia; Z20.822 Contact with and (suspected) exposure to COVID-19
CPT/HCPCS: 0240U; 36415; 71045; 71275; 74175; 80048; 80076; 83690; 83735; 83880; 84484; 85025; 85610; 93005; 93306; 96365; 96367; 96372; 96375; 99285; G0378; J0744; J1650; J2270; J2405; J2920; J2930; J3490; J7030; Q9967

== ENCOUNTER 2022-09-16 09:49 | Emergency (ER) | payer SELFPAY ==
--- NOTE | 2022-09-16 10:44 | RAD REPORT ---
EXAM DESCRIPTION: US - Extremity Venous Uni Ltd - 09/16/2022 10:36 am CLINICAL HISTORY: PAIN COMPARISON: None. TECHNIQUE: Real-time sonographic evaluation of the right lower extremity deep venous systems was per formed. FINDINGS: Normal compressibility, flow augmentation, phasic flow and spontaneous flow are identified in the right lower extremity common femoral, superficial femoral, popliteal and posterior tibial vei ns. No intraluminal filling defects seen. IMPRESSION: No DVT in the right lower extremity.
--- NOTE | 2022-09-16 10:51 | ER ---
Nurse's Notes [facility] Name: Bill Goodrich Age: 46 yrs Sex: Male : 1975 Arrival Date: 09/16/2022 Time: 09:52 Bed IW2 Private MD: Diagnosis: Pain in right lower leg Presentation: 09/16 10:15 Chief complaint: Patient states: Sudden pain to right lower leg while walking, denies jl7 trauma. Coronavirus screen: At this time, the client does not indicate any symptoms associated with coronavirus-19. Ebola Screen: No symptoms or risks identified at this time. Initial Sepsis Screen: Does the patient meet any 2 criteria? No. Patient's initial sepsis screen is negative. Does the patient have a suspected source of infection? No. Patient's initial sepsis screen is negative. Risk Assessment: Do you want to hurt yourself or someone else? Patient reports no desire to harm self or others. Onset of symptoms was September 16, 2022. 10:15 Method Of Arrival: Ambulatory [facility] 10:15 Acuity: PRISCILA 4 jl7 Triage Assessment: 10:17 General: Appears in no apparent distress. uncomfortable, Behavior is calm, cooperative, jl7 appropriate for age. Pain: Complains of pain in medial aspect of right calf Pain currently is 2 out of 10 on a pain scale. at worst was 7 out of 10 on a pain scale. Historical: - Allergies: 10:17 NKA; jl7 - Home Meds: 10:17 None [Active]; jl7 - PMHx: 10:17 crohns disease; UC; jl7 - PSHx: 10:17 Appendectomy; jl7 - Immunization history:: Client reports having NOT received the Covid vaccine. - Social history:: Smoking status: Patient denies any tobacco usage or history of. Screenin:56 Abuse screen: Denies threats or abuse. Denies injuries from another. Nutritional ss screening: No deficits noted. Tuberculosis screening: Never had TB. Fall Risk None identified. Assessment: 10:56 General: Appears in no apparent distress. comfortable, Behavior is calm, cooperative. ss Pain: Complains of pain in right Achilles and right leg and medial aspect of right calf Pain currently is 2 out of 10 on a pain scale. Neuro: Level of Consciousness is awake, alert, obeys commands, Oriented to person, place, time, situation. Respiratory: Airway is patent Respiratory effort is even, unlabored, Respiratory pattern is regular, symmetrical. GI: No signs and/or symptoms were reported involving the gastrointestinal system. Derm: Skin is intact, is healthy with good turgor, Skin is dry, Skin is pink, warm \T\ dry. normal. Musculoskeletal: Circulation, motion, and sensation intact. Range of motion: intact in all extremities, Swelling absent. Vital Signs: 10:15 BP 130 / 100; Pulse 73; Resp 17; Temp 97.9; Pulse Ox 100% on R/A; Pain 2/10; jl7 ED Course: 09:52 Patient arrived in ED. as 10:07 Luanne Dumont FNP-C is [facility]. kb 10:07 Marcelo Awan MD is Attending Physician. kb 10:17 Triage completed. jl7 10:17 Arm band placed on right wrist. jl7 10:38 US Extremity Venous Unilateral Ltd In Process Unspecified. EDMS 10:56 Kasie Silver, RN is Primary Nurse. ss 10:56 Patient has correct armband on for positive identification. Bed in low position. ss 10:56 No provider procedures requiring assistance completed. Patient did not have IV access ss during this emergency room visit. Administered Medications: No medications were administered Medication: 10:56 VIS not applicable for this client. ss Outcome: 10:50 Discharge ordered by . kb 10:56 Discharged to home ambulatory. ss 10:56 Condition: good 10:56 Discharge instructions given to patient, Instructed on discharge instructions, follow up and referral plans. medication usage, Demonstrated understanding of instructions, follow-up care, medications, Prescriptions given X 2. 10:58 Patient left the ED. ss Signatures: Dispatcher [employer] EDMS Luanne Dumont FNP-C FNP-Ckb Martinez, Amelia as Kasie Silver, RN RN ss Gregorio Vela RN RN jl7
--- NOTE | 2022-09-16 10:51 | EDPHYS ---
Physician Documentation [facility] Name: Bill Goodrich Age: 46 yrs Sex: Male : 1975 Arrival Date: 09/16/2022 Time: 09:52 Bed IW2 Private MD: ED Physician Marcelo Awan HPI: 09/16 10:48 This 46 yrs old Male presents to ER via Ambulatory with complaints of Leg Pain.kb 10:48 The patient presents with pain, that is acute. The complaints affect the right kb Achilles. Context: The problem was sustained at home, resulted from an unknown cause, the patient can fully bear weight, the patient is able to ambulate. Onset: The symptoms/episode began/occurred just prior to arrival. Modifying factors: The symptoms are alleviated by nothing. the symptoms are aggravated by movement. Associated signs and symptoms: The patient has no apparent associated signs or symptoms. Treatment prior to arrival includes: no previous treatment. Severity of symptoms: At their worst the symptoms were moderate, in the emergency department the symptoms are unchanged. The patient has not experienced similar symptoms in the past. The patient has not recently seen a physician. Pt states he took a step and felt a pulling pain to right achilles area. States he could apply pressure to that foot at the time, now it is better but he wanted to get it checked out. Historical: - Allergies: 10:17 NKA; jl7 - Home Meds: 10:17 None [Active]; jl7 - PMHx: 10:17 crohns disease; UC; jl7 - PSHx: 10:17 Appendectomy; jl7 - Immunization history:: Client reports having NOT received the Covid vaccine. - Social history:: Smoking status: Patient denies any tobacco usage or history of. ROS: 10:46 Constitutional: Negative for fever, chills, and weight loss. kb 10:46 MS/extremity: Positive for pain, of the right Achilles. 10:46 All other systems are negative. Exam: 10:46 Constitutional: This is a well developed, well nourished patient who is awake, alert, kb and in no acute distress. Head/Face: Normocephalic, atraumatic. ENT: Moist Mucous membranes Cardiovascular: Regular rate and rhythm with a normal S1 and S2. No gallops, murmurs, or rubs. No pulse deficits. Respiratory: Respirations even and unlabored. No increased work of breathing. Talking in full sentences Skin: Warm, dry with normal turgor. Normal color. Neuro: Awake and alert, GCS 15, oriented to person, place, time, and situation. Moves all extremities. Normal gait. Psych: Awake, alert, with orientation to person, place and time. Behavior, mood, and affect are within normal limits. 10:46 Musculoskeletal/extremity: Extremities: grossly normal except: noted in the right Achilles: pain, tenderness, ROM: intact in all extremities, Circulation is intact in all extremities. Sensation intact. Weight bearing: able to fully bear weight, Tendon exam: specific tendon testing normal through active and passive range of motion Vital Signs: 10:15 BP 130 / 100; Pulse 73; Resp 17; Temp 97.9; Pulse Ox 100% on R/A; Pain 2/10; jl7 MDM: 10:16 Patient medically screened. kb 10:48 Data reviewed: vital signs, nurses notes. Data interpreted: Pulse oximetry: on room air kb is 100 %. Interpretation: normal. Counseling: I had a detailed discussion with the patient and/or guardian regarding: the historical points, exam findings, and any diagnostic results supporting the discharge/admit diagnosis, radiology results, the need for outpatient follow up, a family practitioner, to return to the emergency department if symptoms worsen or persist or if there are any questions or concerns that arise at home. 09/16 10:17 Order name: US Extremity Venous Unilateral Ltd; Complete Time: 10:45 kb Administered Medications: No medications were administered Disposition: 16:16 Co-signature as Attending Physician, Marcelo Awan MD I agree with the assessment and kdr plan of care. Disposition Summary: 09/16/22 10:50 Discharge Ordered Location: Home kb Condition: Stable kb Diagnosis - Pain in right lower leg kb Followup: kb - With: Emergency Department - When: As needed - Reason: Worsening of condition Followup: kb - With: Private Physician - When: 2 - 3 days - Reason: Recheck today's complaints, Continuance of care, Re-evaluation by your physician Discharge Instructions: - Discharge Summary Sheet kb - Musculoskeletal Pain kb - Muscle Strain, [id number] kb Forms: - Medication Reconciliation Form kb - Thank You Letter kb - Antibiotic Education kb - Prescription Opioid Use kb Prescriptions: - Ibuprofen 600 mg Oral Tablet - take 1 tablet by ORAL route every 6 hours As needed take with food; 30 tablet; kb Refills: 0, Product Selection Permitted - Cyclobenzaprine 10 mg Oral Tablet - take 1 tablet by ORAL route every 8 hours As needed; 15 tablet; Refills: 0, kb Product Selection Permitted Signatures: Dispatcher [employer] Luanne Salomon, Marcelo Ladd MD MD kdr Leal, Jahala RN RN jl7
[2022-09-16 11:07] VITALS: BP 130/100; TEMP 97.9; O2SAT 100
== END 2022-09-16 10:58 | disposition home or self-care (01) ==
LOC: ER 09:49
DX: M79.661 Pain in right lower leg (principal)
CPT/HCPCS: 93971; 99283

== ENCOUNTER 2022-10-07 11:16 | Emergency (ER) | payer SELFPAY ==
[2022-10-07] MEDS ORDERED: TENECTEPLASE 50 MG/10 ML VIAL IV ONE (12:03)
[2022-10-07] MEDS ORDERED: FAMOTIDINE 20 MG/2 ML VIAL IV ONE (12:03)
[2022-10-07] MEDS ORDERED: FOLIC ACID 5 MG/ML VIAL ONE (12:04)
[2022-10-07] MEDS ORDERED: NA CHLORIDE 0.9% 1,000 ML ONE (12:04)
--- NOTE | 2022-10-07 12:09 | RAD REPORT ---
EXAM DESCRIPTION: CT - Ct Stroke Brain Wo Cont - 10/07/2022 12:04 pm CLINICAL HISTORY: Neuro deficit, acute, stroke suspected Headache, drowsiness, CVA symptomology COMPARISON: No comparisons TECHNIQUE: All CT scans are performed using dose optimization technique as appropriate and may inclu de automated exposure control or mA/KV adjustment according to patient size. FINDINGS: No intracranial hemorrhage, hydrocephalus or extra-axial fluid collection.No areas of brai n edema or evidence of midline shift. 2 cm mucous retention cyst versus polyp right maxillary antrum. The paranasal sinuses and mastoids ar e otherwise clear. The calvarium is intact. IMPRESSION: No acute intracranial abnormality. If there is continued clinical concern for CVA, MR imaging of the brain would be recommended. The findings were discussed with doctor Dutton in the emergency room on 10/07/2022 at 11:52 a.m. b y telephone.
[2022-10-07 12:19] LABS: Absolute Lymphocytes (CBC) 3.4 K/uL (0.7-4.9); Hematocrit 42.7 % (39.6-49.0); Lymphocytes % 22.5 % (15.3-44.8); MCV 85.9 fL (80-100); MPV 7.7 fL (7.6-11.3); RBC Red Blood Cell Count 4.97 M/uL (4.33-5.43)
[2022-10-07 12:23] LABS: Protime INR 1.1
--- NOTE | 2022-10-07 12:26 | EDPHYS ---
Physician Documentation [facility] Name: Bill Goodrich Age: 46 yrs Sex: Male : 1975 Arrival Date: 10/07/2022 Time: 11:17 Bed 24 Private MD: ED Physician Ty Dutton HPI: 10/07 12:19 This 46 yrs old Male presents to ER via Wheelchair with complaints of Passed tierra Out Prior To Arrival, Numbness Of Arm. 12:19 The patient has experienced near-syncope. tierra Historical: - Allergies: 11:57 NKA; ld1 - PMHx: 11:57 crohns disease; UC; ld1 - PSHx: 11:57 Appendectomy; ld1 - Immunization history:: Adult Immunizations up to date, Client reports receiving the 2nd dose of the Covid vaccine. - Social history:: Smoking status: Patient denies any tobacco usage or history of. Patient/guardian denies using alcohol. - Family history:: not pertinent. ROS: 12:20 Constitutional: Negative for fever, chills, and weight loss, Eyes: Negative for injury, tierra pain, redness, and discharge, ENT: Negative for injury, pain, and discharge, Neck: Negative for injury, pain, and swelling, Cardiovascular: Negative for chest pain, palpitations, and edema, Respiratory: Negative for shortness of breath, cough, wheezing, and pleuritic chest pain, Abdomen/GI: Negative for abdominal pain, nausea, vomiting, diarrhea, and constipation, Back: Negative for injury and pain, : Negative for injury, bleeding, discharge, and swelling, Skin: Negative for injury, rash, and discoloration, Psych: Negative for depression, anxiety, suicide ideation, homicidal ideation, and hallucinations, Allergy/Immunology: Negative for hives, rash, and allergies, Endocrine: Negative for neck swelling, polydipsia, polyuria, polyphagia, and marked weight changes, Hematologic/Lymphatic: Negative for swollen nodes, abnormal bleeding, and unusual bruising. 12:20 MS/extremity: Positive for decreased range of motion, of the left arm and left leg. 12:20 Neuro: Positive for gait disturbance, numbness, weakness, of the left arm and left leg. Exam: 12:13 ECG was reviewed by the Attending Physician. tierra 12:20 Radiologist reports: negative tierra 12:20 Constitutional: This is a well developed, well nourished patient who is awake, alert, and in no acute distress. Head/Face: Normocephalic, atraumatic. Eyes: Pupils equal round and reactive to light, extra-ocular motions intact. Lids and lashes normal. Conjunctiva and sclera are non-icteric and not injected. Cornea within normal limits. Periorbital areas with no swelling, redness, or edema. ENT: Nares patent. No nasal discharge, no septal abnormalities noted. Tympanic membranes are normal and external auditory canals are clear. Oropharynx with no redness, swelling, or masses, exudates, or evidence of obstruction, uvula midline. Mucous membranes moist. Neck: Trachea midline, no thyromegaly or masses palpated, and no cervical lymphadenopathy. Supple, full range of motion without nuchal rigidity, or vertebral point tenderness. No Meningismus. Chest/axilla: Normal chest wall appearance and motion. Nontender with no deformity. No lesions are appreciated. Cardiovascular: Regular rate and rhythm with a normal S1 and S2. No gallops, murmurs, or rubs. Normal PMI, no JVD. No pulse deficits. Respiratory: Lungs have equal breath sounds bilaterally, clear to auscultation and percussion. No rales, rhonchi or wheezes noted. No increased work of breathing, no retractions or nasal flaring. Abdomen/GI: Soft, non-tender, with normal bowel sounds. No distension or tympany. No guarding or rebound. No evidence of tenderness throughout. Back: No spinal tenderness. No costovertebral tenderness. Full range of motion. Male : Normal genitalia with no discharge or lesions. Skin: Warm, dry with normal turgor. Normal color with no rashes, no lesions, and no evidence of cellulitis. Psych: Awake, alert, with orientation to person, place and time. Behavior, mood, and affect are within normal limits. 12:20 Musculoskeletal/extremity: ROM: limited active range of motion, in the left arm and left leg, Circulation is intact in all extremities. Sensation intact. Compartment Syndrome exam of affected extremity: is normal. Joints: All joints appear normal with full range of motion. Weight bearing: able to fully bear weight, DVT Exam: No signs of deep vein thrombosis. no pain, no swelling, no tenderness, negative Homans' sign noted on exam, no appreciated bluish discoloration, no erythema, no increased warmth. 12:20 Neuro: Orientation: is normal, appropriate for stated age, no acute changes, Mentation: is normal, appropriate for stated age, no acute changes, Memory: is normal, appropriate for stated age, no acute changes, Cranial nerves: grossly normal, is grossly normal based on the patient's age, no acute changes, Cerebellar function: dysmetria is noted on the left, the patient is unable to track left heel to right morris, Motor: moves all fours, Strength is 3/5 in the left arm and left leg, Sensation: tingling, that is mild, of the left arm and left leg, Gait: not tested. Babinski testing is normal, seizure activity, is not displayed by the patient. Vital Signs: 11:55 Pain 0/10; ld1 12:06 BP 135 / 91; Pulse 86; Resp 18; Pulse Ox 100% on R/A; ll1 12:20 Weight 64.86 kg; ll1 13:21 BP 132 / 98; Pulse 85; Resp 17; Pulse Ox 100% ; ll1 NIH Stroke Scale Scores: 12:13 NIHSS Score: 5 tierra 12:25 NIHSS Score: 5 ll1 MDM: 11:54 Patient medically screened. tierra 12:24 Differential diagnosis: CVA, TIA, metabolic disorder, drug effects. Differential tierra Diagnosis: cardiac arrhythmia, cerebrovascular accident, drug effect, emotional response, idiopathic syncope. Data reviewed: vital signs, nurses notes, lab test result(s), EKG, radiologic studies, CT scan, plain films. Data interpreted: front desk monitor: rate is 86 beats/min, rhythm is regular, Pulse oximetry: on room air is 100 %. Test interpretation: by ED physician or midlevel provider: ECG, plain radiologic studies. Counseling: I had a detailed discussion with the patient and/or guardian regarding: the historical points, exam findings, and any diagnostic results supporting the discharge/admit diagnosis, lab results, radiology results, the need to transfer to another facility, for higher level of care, [facility] does not immediately have the required specialist. 10/07 11:57 Order name: Basic Metabolic Panel [facility] 10/07 11:57 Order name: CBC with Diff; Complete Time: 12:56 [facility] 10/07 11:57 Order name: LFT's [facility] 10/07 11:57 Order name: Magnesium [facility] 10/07 11:57 Order name: NT PRO-BNP [facility] 10/07 11:57 Order name: PT-INR; Complete Time: 12:56 [facility] 10/07 11:57 Order name: Troponin HS [facility] 10/07 11:57 Order name: XRAY Chest (1 view) [facility] 10/07 11:57 Order name: SARS RAPID; Complete Time: 12:56 [facility] 10/07 11:57 Order name: Sed Rate; Complete Time: 12:56 [facility] 10/07 11:57 Order name: CRP [facility] 10/07 11:57 Order name: CT Stroke Brain w/o Contrast; Complete Time: 12:13 [facility] 10/07 11:57 Order name: CT Head Angio; Complete Time: 12:56 [facility] 10/07 12:32 Order name: Glucose, Ancillary Testing; Complete Time: 12:56 EDMS 10/07 11:57 Order name: EKG; Complete Time: 11:58 [facility] 10/07 11:57 Order name: Cardiac monitoring; Complete Time: 11:58 [facility] 10/07 11:57 Order name: EKG - Nurse/Tech; Complete Time: 11:58 [facility] 10/07 11:57 Order name: IV Saline Lock; Complete Time: 11:58 [facility] 10/07 11:57 Order name: Labs collected and sent; Complete Time: 11:58 [facility] 10/07 11:57 Order name: O2 Per Protocol; Complete Time: 11:58 [facility] 10/07 11:57 Order name: O2 Sat Monitoring; Complete Time: 11:58 [facility] 10/07 11:57 Order name: CT Neck Angio; Complete Time: 12:56 [facility] EC:13 Rate is 89 beats/min. Rhythm is regular. QRS Hector is Normal. OR interval is normal. QRS tierra interval is normal. QT interval is normal. No Q waves. T waves are Normal. No ST changes noted. Clinical impression: Normal ECG and No evidence of ischemia. Interpreted by me. Reviewed by me. Administered Medications: 12:21 Drug: NS 0.9% 1000 ml Route: IV; Rate: 1 bolus; Site: left antecubital; ll1 13:44 Follow up: Response: No adverse reaction; IV Status: Infusion continued upon transfer; ll1 IV Intake: 400ml 12:22 Drug: foLIC Acid 1 mg Route: IVPB; Site: left antecubital; 1 12:51 Follow up: Response: No adverse reaction; IV Status: Completed infusion; IV Intake: ll1 0.2ml 12:24 Drug: Pepcid (famotidine) 20 mg Route: IVP; Site: left antecubital; 1 12:51 Follow up: Response: No adverse reaction [facility] 12:26 Drug: TNK FOR STROKE - Tenecteplase 0.25 mg/kg {Co-Signature: [email or web address] (Gregorio jones1 RN).} Route: IV; Rate: per protocol; Site: left antecubital; 12:30 Follow up: Response: No adverse reaction; IV Status: Completed infusion; IV Intake: ll1 3.2ml Disposition Summary: 10/07/22 12:26 Transfer Ordered Transfer Location: [facility] tierra Reason: Higher level of care tierra Condition: Serious tierra Problem: new tierra Symptoms: have improved tierra Accepting Physician: dr wong(10/07/22 13:44) ll1 Diagnosis - Cerebral infarction, unspecified - acute left arm,leg weakness tierra Forms: - Medication Reconciliation Form tierra - SBAR form tierra NIH Stroke Scale - NIH Stroke Score Date: 10/07/2022 Time: 12:13 Total Score = 5 1a. Level of Consciousness (LOC) - 0(Alert) 1b. Level of Consciousness (LOC) (Month \T\ Age) - 0(Both) 1c. LOC Commands (Open \T\ Closes Eyes/Outside Collector) - 0(Both) 2. Best Gaze (Lateral Gaze Paresis) - 0(Normal) 3. Visual Field Loss - 0(No visual loss) 4. Facial Palsy - 0(Normal) 5a. Left Arm: Motor (10-second hold) - 2(Drift, some effort against gravity) 5b. Right Arm: Motor (10-second hold) - 0(No drift) 6a. Left Leg: Motor (5-second hold - always test supine) - 1(Drift) 6b. Right Leg: Motor (5-second hold - always test supine) - 0(No drift) 7. Limb Ataxia (finger/nose \T\ heel/morris - test with eyes open) - 2(Present in two limbs) 8. Sensory Loss (pinprick arms/legs/face) - 0(Normal) 9. Best Language: Aphasia (description/naming/reading) - 0(No aphasia) 10. Dysarthria (speech clarity - read or repeat words) - 0(Normal) 11. Extinction and Inattention (visual/tactile/auditory/spatial/personal) - 0(No abnormality) Initials: tierra NIH Stroke Scale - NIH Stroke Score Date: 10/07/2022 Time: 12:25 Total Score = 5 1a. Level of Consciousness (LOC) - 0(Alert) 1b. Level of Consciousness (LOC) (Month \T\ Age) - 0(Both) 1c. LOC Commands (Open \T\ Closes Eyes/Outside Collector) - 0(Both) 2. Best Gaze (Lateral Gaze Paresis) - 0(Normal) 3. Visual Field Loss - 0(No visual loss) 4. Facial Palsy - 0(Normal) 5a. Left Arm: Motor (10-second hold) - 2(Drift, some effort against gravity) 5b. Right Arm: Motor (10-second hold) - 0(No drift) 6a. Left Leg: Motor (5-second hold - always test supine) - 1(Drift) 6b. Right Leg: Motor (5-second hold - always test supine) - 0(No drift) 7. Limb Ataxia (finger/nose \T\ heel/morris - test with eyes open) - 2(Present in two limbs) 8. Sensory Loss (pinprick arms/legs/face) - 0(Normal) 9. Best Language: Aphasia (description/naming/reading) - 0(No aphasia) 10. Dysarthria (speech clarity - read or repeat words) - 0(Normal) 11. Extinction and Inattention (visual/tactile/auditory/spatial/personal) - 0(No abnormality) Initials: ll1 Signatures: Dispatcher [employer] Ty Mendez MD MD cha Lewis, Lynsay RN RN ll1 Allison Perdomo RN RN ld1 Gregorio Vela RN jl7 Corrections: (The following items were deleted from the chart) 13:44 12:26 dr marvin mayorga ll1
--- NOTE | 2022-10-07 12:26 | ER ---
Nurse's Notes [facility] Name: Bill Goodrich Age: 46 yrs Sex: Male : 1975 Arrival Date: 10/07/2022 Time: 11:17 Bed 24 Private MD: Diagnosis: Cerebral infarction, unspecified-acute left arm,leg weakness Presentation: 10/07 11:55 Chief complaint: Patient states: Left sided numbness since 1039 AM - left arm \T\ left ld1 leg numbness. Coronavirus screen: At this time, the client does not indicate any symptoms associated with coronavirus-19. Ebola Screen: No symptoms or risks identified at this time. Initial Sepsis Screen: Does the patient meet any 2 criteria? No. Patient's initial sepsis screen is negative. Does the patient have a suspected source of infection? No. Patient's initial sepsis screen is negative. Risk Assessment: Do you want to hurt yourself or someone else? Patient reports no desire to harm self or others. Onset of symptoms was October 07, 2022 at 10:39. 11:55 Method Of Arrival: Wheelchair ld1 11:55 Acuity: PRISCILA 2 ld1 Triage Assessment: 11:57 General: Appears in no apparent distress. comfortable, Behavior is calm, cooperative, ld1 appropriate for age. Pain: Denies pain. EENT: No signs and/or symptoms were reported regarding the EENT system. Neuro: Level of Consciousness is awake, alert, obeys commands, Oriented to person, place, time, situation, Appropriate for age Vp Of Customer Experience Strategy are weak on left Weakness in left arm(s) leg(s). Cardiovascular: Capillary refill < 3 seconds Patient's skin is warm and dry. Respiratory: Airway is patent Respiratory effort is even, unlabored. GI: Abdomen is flat, non-distended. : No signs and/or symptoms were reported regarding the genitourinary system. Derm: No signs and/or symptoms reported regarding the dermatologic system. Musculoskeletal: No signs and/or symptoms reported regarding the musculoskeletal system. Historical: - Allergies: 11:57 NKA; ld1 - PMHx: 11:57 crohns disease; UC; ld1 - PSHx: 11:57 Appendectomy; ld1 - Immunization history:: Adult Immunizations up to date, Client reports receiving the 2nd dose of the Covid vaccine. - Social history:: Smoking status: Patient denies any tobacco usage or history of. Patient/guardian denies using alcohol. - Family history:: not pertinent. Screenin:46 [facility] ED Fall Risk Assessment (Adult) Impaired Gait Yes (1 pt) Mobility Assist ll1 Device Used Yes (1 pt) Score/Fall Risk Level 3 or more points = High Risk Oriented to surroundings, Maintained a safe environment, Educated pt \T\ family on fall prevention, incl call for assistance when getting out of bed, Hourly rounding (assess needs \T\ fall precautionary measures) done. Abuse screen: Denies threats or abuse. Nutritional screening: No deficits noted. Tuberculosis screening: No symptoms or risk factors identified. 13:04 Patient has been NPO before screening. The patient is alert, able to follow commands. ll1 The patient does not exhibit slurred or garbled speech The patient is not exhibiting difficulty speaking. The patient is able to swallow own secretions with no drooling or need for suction. Patient tolerated one teaspoon of water. No drooling, immediate coughing, gurgling, or clearing of the throat was noted. The patient tolerated 90mL of water. No drooling, immediate coughing, gurgling, or clearing of the throat was noted. The patient passed the bedside swallow screening. Oral medications may be given as ordered. Contact Physician for further diet orders. Assessment: 12:43 Reassessment: No changes from previously documented assessment. Patient and/or family ll1 updated on plan of care and expected duration. Pain level reassessed. Patient is alert, oriented x 3, equal unlabored respirations, skin warm/dry/pink. 12:49 Reassessment: No changes from previously documented assessment. Patient and/or family ll1 updated on plan of care and expected duration. Pain level reassessed. Patient is alert, oriented x 3, equal unlabored respirations, skin warm/dry/pink. 13:21 Reassessment: No changes from previously documented assessment. Patient and/or family ll1 updated on plan of care and expected duration. Pain level reassessed. Patient is alert, oriented x 3, equal unlabored respirations, skin warm/dry/pink. 13:43 Reassessment: No changes from previously documented assessment. Patient and/or family ll1 updated on plan of care and expected duration. Pain level reassessed. Patient is alert, oriented x 3, equal unlabored respirations, skin warm/dry/pink. Vital Signs: 11:55 Pain 0/10; ld1 12:06 BP 135 / 91; Pulse 86; Resp 18; Pulse Ox 100% on R/A; ll1 12:20 Weight 64.86 kg; ll1 13:21 BP 132 / 98; Pulse 85; Resp 17; Pulse Ox 100% ; ll1 NIH Stroke Scale Scores: 12:13 NIHSS Score: 5 tierra 12:25 NIHSS Score: 5 ll1 ED Course: 11:17 Patient arrived in ED. rg4 11:54 Lauro Bautista, RN is Primary Nurse. ll1 11:54 Ty Dutton MD is Attending Physician. tierra 11:54 Arm band placed on Patient placed in an exam room, on a stretcher. ll1 11:57 Triage completed. ld1 12:05 CT Stroke Brain w/o Contrast In Process Unspecified. EDMS 12:14 Inserted saline lock: 20 gauge in left antecubital area, using aseptic technique. Blood zm collected. 12:14 CRP Sent. zm 12:14 Sed Rate Sent. zm 12:14 SARS RAPID Sent. zm 12:14 Basic Metabolic Panel Sent. zm 12:14 CBC with Diff Sent. zm 12:14 LFT's Sent. zm 12:14 Magnesium Sent. zm 12:14 NT PRO-BNP Sent. zm 12:14 PT-INR Sent. zm 12:14 Troponin HS Sent. zm 12:39 CT Head Angio In Process Unspecified. EDMS 12:40 CT Neck Angio In Process Unspecified. EDMS 12:48 No provider procedures requiring assistance completed. Patient transferred, IV remains ll1 in place. 12:49 Patient has correct armband on for positive identification. Bed in low position. Call ll1 light in reach. Side rails up X2. Client placed on continuous cardiac and pulse oximetry monitoring. NIBP monitoring applied. superintendent automotive on. 13:22 XRAY Chest (1 view) In Process Unspecified. EDMS Administered Medications: 12:21 Drug: NS 0.9% 1000 ml Route: IV; Rate: 1 bolus; Site: left antecubital; 1 13:44 Follow up: Response: No adverse reaction; IV Status: Infusion continued upon transfer; [facility] IV Intake: 400ml 12:22 Drug: foLIC Acid 1 mg Route: IVPB; Site: left antecubital; ll1 12:51 Follow up: Response: No adverse reaction; IV Status: Completed infusion; IV Intake: ll1 0.2ml 12:24 Drug: Pepcid (famotidine) 20 mg Route: IVP; Site: left antecubital; ll1 12:51 Follow up: Response: No adverse reaction ll1 12:26 Drug: TNK FOR STROKE - Tenecteplase 0.25 mg/kg {Co-Signature: [email or web address] (Gregorio Vela 1 RN).} Route: IV; Rate: per protocol; Site: left antecubital; 12:30 Follow up: Response: No adverse reaction; IV Status: Completed infusion; IV Intake: ll1 3.2ml Medication: 12:49 VIS not applicable for this client. ll1 Intake: 12:30 IV: 3ml; Total: 3ml. ll1 12:51 IV: 0ml; Total: 3ml. ll1 13:44 IV: 400ml; Total: 403ml. ll1 Outcome: 12:26 ER care complete, transfer ordered by . tierra 12:49 Transferred to [facility], Transfer form completed. ll1 12:49 Condition: stable 12:49 Instructed on the need for transfer. 13:44 Patient left the ED. ll1 NIH Stroke Scale - NIH Stroke Score Date: 10/07/2022 Time: 12:13 Total Score = 5 1a. Level of Consciousness (LOC) - 0(Alert) 1b. Level of Consciousness (LOC) (Month \T\ Age) - 0(Both) 1c. LOC Commands (Open \T\ Closes Eyes/Atomizer Assembler) - 0(Both) 2. Best Gaze (Lateral Gaze Paresis) - 0(Normal) 3. Visual Field Loss - 0(No visual loss) 4. Facial Palsy - 0(Normal) 5a. Left Arm: Motor (10-second hold) - 2(Drift, some effort against gravity) 5b. Right Arm: Motor (10-second hold) - 0(No drift) 6a. Left Leg: Motor (5-second hold - always test supine) - 1(Drift) 6b. Right Leg: Motor (5-second hold - always test supine) - 0(No drift) 7. Limb Ataxia (finger/nose \T\ heel/morris - test with eyes open) - 2(Present in two limbs) 8. Sensory Loss (pinprick arms/legs/face) - 0(Normal) 9. Best Language: Aphasia (description/naming/reading) - 0(No aphasia) 10. Dysarthria (speech clarity - read or repeat words) - 0(Normal) 11. Extinction and Inattention (visual/tactile/auditory/spatial/personal) - 0(No abnormality) Initials: tierra NIH Stroke Scale - NIH Stroke Score Date: 10/07/2022 Time: 12:25 Total Score = 5 1a. Level of Consciousness (LOC) - 0(Alert) 1b. Level of Consciousness (LOC) (Month \T\ Age) - 0(Both) 1c. LOC Commands (Open \T\ Closes Eyes/Atomizer Assembler) - 0(Both) 2. Best Gaze (Lateral Gaze Paresis) - 0(Normal) 3. Visual Field Loss - 0(No visual loss) 4. Facial Palsy - 0(Normal) 5a. Left Arm: Motor (10-second hold) - 2(Drift, some effort against gravity) 5b. Right Arm: Motor (10-second hold) - 0(No drift) 6a. Left Leg: Motor (5-second hold - always test supine) - 1(Drift) 6b. Right Leg: Motor (5-second hold - always test supine) - 0(No drift) 7. Limb Ataxia (finger/nose \T\ heel/morris - test with eyes open) - 2(Present in two limbs) 8. Sensory Loss (pinprick arms/legs/face) - 0(Normal) 9. Best Language: Aphasia (description/naming/reading) - 0(No aphasia) 10. Dysarthria (speech clarity - read or repeat words) - 0(Normal) 11. Extinction and Inattention (visual/tactile/auditory/spatial/personal) - 0(No abnormality) Initials: ll1 Signatures: Dispatcher [employer] EDMS Ty Dutton MD MD cha Garcia, Rubi rg4 Lauro Bautista RN RN ll1 Allison Perdomo RN RN ld1 Mary Yates RN jl7 Corrections: (The following items were deleted from the chart) 12:29 12:29 foLIC Acid 1 mg IVPB in left antecubital ll1 ll1
[2022-10-07 12:32] LABS: SARS-CoV-2 Antigen Rapid Res Negative (Negative)
--- NOTE | 2022-10-07 12:49 | RAD REPORT ---
EXAM DESCRIPTION: CT - Head angio - 10/07/2022 12:38 pm CLINICAL HISTORY: Neuro deficit, acute, stroke suspected COMPARISON: Ct Stroke Brain Wo Cont dated 10/07/2022 TECHNIQUE: CT angiography of the head was performed with MIPs. All CT scans are performed using dose optimization technique as appropriate and may include automated exposure control or mA/KV adjustment according to patient size. FINDINGS: Anterior circulation: No aneurysm or large vessel occlusion. No hemodynamically significant stenosis. No arteriovenous malf ormation identified. Posterior circulation: No aneurysm or large vessel occlusion. No hemodynamically significant stenosis. No arteriovenous malf ormation identified. Mucous retention cysts in the maxillary sinuses. IMPRESSION: No significant flow abnormality is detected.
--- NOTE | 2022-10-07 12:50 | RAD REPORT ---
EXAM DESCRIPTION: CT - Neck Angio - 10/07/2022 12:38 pm CLINICAL HISTORY: Neuro deficit, acute, stroke suspected COMPARISON: Head C Spine Mpr Wo Con dated 07/23/2022 TECHNIQUE: CT angiography of the neck vessels was performed with MIPs. All CT scans are performed using dose optimization technique as appropriate and may include automated exposure control or mA/KV adjustment according to patient size. FINDINGS: A left aortic arch is identified with normal three vessel configuration of the great vesse ls. No significant flow abnormality is seen of the common carotid bilaterally. No significant stenosis is identified involving the cervical segments of both internal carotid arteri es. Normal flow is seen within both vertebral arteries. Mild left dominance. IMPRESSION: No significant flow abnormality of the neck vessels is identified.
[2022-10-07 13:19] LABS: Albumin 4.2 g/dL (3.4-5.0); Bilirubin Direct 0.2 mg/dL (0-0.2); Bilirubin Total 0.5 mg/dL (0.2-1.0); C-Reactive Protein 7.05 mg/L (<3.00); Magnesium 1.9 mg/dL (1.6-2.4); Potassium 3.4 mmol/L (3.5-5.1); Protein, Total 8.6 g/dL (6.4-8.2); Troponin High Sensitivity 4.9 pg/mL (<58.9)
--- NOTE | 2022-10-07 13:37 | RAD REPORT ---
EXAM DESCRIPTION: RAD - Chest Single View - 10/07/2022 1:20 pm CLINICAL HISTORY: COUGH COMPARISON: Chest Single View dated 07/23/2022; Chest Single View dated 02/05/2022; Chest Single View dated 05/25/2018; Chest Pa And Lat (2 Views) dated 11/21/2017 FINDINGS: Lines: None. Lungs: No evidence of edema or pneumonia. Pleural: No significant pleural effusions or pneumothorax. Cardiac: The heart size is within normal limits. Mediastinum: Within normal limits. Bones: No acute fractures. Other: None IMPRESSION: No acute cardiopulmonary disease.
[2022-10-07 13:49] VITALS: O2SAT 100
[2022-10-07 13:50] VITALS: BP 132/98
--- NOTE | 2022-10-08 13:41 | EKG ---
Test Date: 2022-10-07 Test Time: 12:04:05 Grill Prep Cook: HERRERA MEASUREMENT RESULTS: Intervals: Rate: 89 TN: 144 QRSD: 84 QT: 374 QTc: 455 [place]: P: 60 TN: 144 QRS: 29 T: 53 INTERPRETIVE STATEMENTS: Normal sinus rhythm Normal ECG Compared to ECG 07/23/2022 14:43:04 No significant changes Electronically Signed On 10-08-22 13:38:35 WAITSTAFF CAPTAIN by Sunny Dent
== END 2022-10-07 13:44 | disposition short-term general hospital (02) ==
LOC: ER 11:16
DX: I63.9 Cerebral infarction, unspecified (principal); R29.705 NIHSS score 5
CPT/HCPCS: 36415; 70450; 70496; 70498; 71045; 80048; 80076; 82947; 83735; 83880; 84484; 85025; 85610; 85652; 86140; 87811; 92977; 93005; 96361; 96365; 96375; 99285; J3101; J7030; Q9967

== ENCOUNTER 2024-08-11 13:26 | Emergency (ER) | payer SELFPAY ==
--- NOTE | 2024-08-11 14:04 | RAD REPORT ---
EXAMINATION: ONE VIEW CHEST XR CLINICAL INDICATION: CHEST PAIN TECHNIQUE: Frontal chest projection is submitted. Examination is limited by patient positioning and t echnique. COMPARISON: 01/15/2023 FINDINGS: The lungs are well inflated and clear. The heart is normal in size. No displaced fractures identified . IMPRESSION: No acute intrathoracic abnormalities.
[2024-08-11] MEDS ORDERED: ASPIRIN 81 MG CHEWABLE TABLET ONE (14:07)
--- NOTE | 2024-08-11 14:07 | RAD REPORT ---
EXAM: CT brain without contrast HISTORY: NUMBNESS COMPARISON: 01/14/2023 TECHNIQUE: Multiple contiguous axial images were obtained and a CT of the brain without contrast. Sag ittal and coronal reformats were performed. One or more of the following dose reduction techniques were used: Automated exposure control, adjust ment of the mA and/or kV according to patient size, and/or iterative reconstruction. FINDINGS: No evidence of hydrocephalus, intracranial hemorrhage, or extra-axial fluid collection. The brain is normal in morphology. No evidence of midline shift or areas of brain edema. The calvarium is intact. Mild polypoid mucosal thickening noted in the paranasal sinuses. IMPRESSION: No evidence of acute intracranial abnormality.
--- NOTE | 2024-08-11 14:45 | RAD REPORT ---
EXAMINATION: MRI BRAIN WITHOUT CONTRAST CLINICAL INDICATION: NUMBNESS TECHNIQUE: Multiplanar multisequence MR images of the brain were obtained without intravenous contras t. Unless otherwise specified, incidental findings do not require dedicated imaging follow-up. COMPARISON: 08/11/2024 FINDINGS: INTRACRANIAL: Diffusion-weighted images show no acute or early subacute infarction. No abnormal brain parenchymal signal. The ventricles are normal in size and morphology. No augmented susceptibility. There is no mass effect or midline shift. No abnormal extraaxial fluid collection. VASCULATURE: Normal signal voids in the larger intracranial arteries and dural venous sinuses. SINUSES: Mild sinus opacification. BONE: The marrow signal pattern is within normal limits. IMPRESSION: Negative for acutre CVA or other acute intracranial finding.
[2024-08-11 15:01] LABS: Absolute Basophils 0.1 K/uL (0-0.5); Absolute Eosinophils 0.2 K/uL (0-0.5); Absolute Lymphocytes (CBC) 2.7 K/uL (0.7-4.9); Absolute Neutrophil 5.1 K/uL (1.8-8.0); Basophils % 0.9 % (0-1.3); Eosinophils % 2.2 % (0-4.4); Hematocrit 42.4 % (39.6-49.0); Hemoglobin 13.6 g/dL (13.6-17.9); Lymphocytes % 29.9 % (15.3-44.8); MCH 28.1 pg (27.0-35.0); MCHC 31.9 g/dL (32.0-36.0); MCV 87.8 fL (80-100); MPV 8.1 fL (7.6-11.3); Monocytes % 10.5 % (3.3-12.3); Neutrophils % 56.5 % (41.7-73.7); Nucleated Red Blood Cells % 0.1 % (0-0); Platelets 413 thou/uL (152-406); RBC Red Blood Cell Count 4.83 M/uL (4.33-5.43); Red Cell Distribution Width 15.7 % (12.1-15.2)
[2024-08-11 15:20] LABS: Anion Gap 4.7 mEq/L (5.0-15.0); BUN Blood Urea Nitrogen 13 mg/dL (7-18); Bicarbonate 30 mEq/L (21-32); Glomerular Filtration Rate 104 ml/min (=/>90); Glucose Level 106 mg/dL (74-106); Magnesium 2.1 mg/dL (1.6-2.4); NT PRO-BNP 17 pg/mL (<125); Potassium 3.7 mEq/L (3.5-5.1); Sodium Level 138 mEq/L (136-145)
[2024-08-11 15:22] LABS: Troponin High Sensitivity < 3.0 pg/mL (<58.9)
--- NOTE | 2024-08-11 17:38 | ER ---
Nurse's Notes [facility] Name: Bill Goodrich Age: 48 yrs Sex: Male : 1975 Arrival Date: 08/11/2024 Time: 13:26 Bed 12 Private MD: Diagnosis: Chest pain, unspecified Presentation: 08/11 13:39 Chief complaint: Patient states: Intermittent left sided chest pain onset a few days cm10 ago. Pt reports nausea. Coronavirus screen: Client denies travel out of the [place] in the last 14 days. Ebola Screen: Patient denies travel to an Ebola-affected area in the 21 days before illness onset. No symptoms or risks identified at this time. Initial Sepsis Screen: Does the patient meet any 2 criteria? No. Patient's initial sepsis screen is negative. Does the patient have a suspected source of infection? No. Patient's initial sepsis screen is negative. Risk Assessment: Do you want to hurt yourself or someone else? Patient reports no desire to harm self or others. Onset of symptoms was August 11, 2024. 13:39 Method Of Arrival: Ambulatory cm10 13:39 Acuity: PRISCILA 2 cm10 Triage Assessment: 13:40 General: Appears in no apparent distress. comfortable, Behavior is calm, cooperative. cm10 Neuro: No deficits noted. Level of Consciousness is awake, alert, obeys commands, Oriented to person, place, time, situation, Appropriate for age. Respiratory: No deficits noted. Airway is patent Respiratory effort is even, unlabored, Respiratory pattern is regular, symmetrical. Historical: - Allergies: 13:40 NKA; cm10 - PMHx: 13:40 crohns disease; CVA; UC; cm10 - PSHx: 13:40 Appendectomy; loop recorder; cm10 - Immunization history:: Adult Immunizations up to date. - Infectious Disease History:: Denies. - Social history:: Smoking status: Patient denies any tobacco usage or history of. Screenin:45 [facility] ED Fall Risk Assessment (Adult) History of falling in the last 3 months, rs5 including since admission No falls in past 3 months (0 pts) Confusion or Disorientation No (0 pts) Intoxicated or Sedated No (0 pts) Impaired Gait No (0 pts) Mobility Assist Device Used No (0 pt) Altered Elimination No (0 pt) Score/Fall Risk Level 0 - 2 = Low Risk Oriented to surroundings, Maintained a safe environment. Abuse screen: Denies threats or abuse. Nutritional screening: No deficits noted. Tuberculosis screening: No symptoms or risk factors identified. Assessment: 13:45 General: Appears in no apparent distress. uncomfortable, Behavior is calm, cooperative. rs5 Pain: Complains of pain in left sided chest pain Pain does not radiate. Pain currently is 5 out of 10 on a pain scale. Quality of pain is described as aching, Pain began 2-3 days ago. Is continuous. Neuro: Level of Consciousness is awake, alert, obeys commands, Oriented to person, place, time, situation. Cardiovascular: Patient's skin is warm and dry. Rhythm is regular. Respiratory: Airway is patent Respiratory effort is even, unlabored, Respiratory pattern is regular, symmetrical. : No signs and/or symptoms were reported regarding the genitourinary system. EENT: No signs and/or symptoms were reported regarding the EENT system. Derm: Skin is intact, Skin is pink, warm \T\ dry. Musculoskeletal: Range of motion: intact in all extremities. 13:45 GI: Abdomen is round non-distended, Abd is soft and non tender X 4 quads. rs5 13:55 Reassessment: to room for iv insertion and med adm, pt not in room . rs5 14:15 Reassessment: to room for iv insertion and med adm, pt not in room . rs5 14:25 Reassessment: Patient and/or family updated on plan of care and expected duration. Pain rs5 level reassessed. Patient is alert, oriented x 3, equal unlabored respirations, skin warm/dry/pink. Patient states feeling better. 15:01 Reassessment: Patient and/or family updated on plan of care and expected duration. Pain rs5 level reassessed. Patient is alert, oriented x 3, equal unlabored respirations, skin warm/dry/pink. 16:10 Reassessment: Patient and/or family updated on plan of care and expected duration. Pain rs5 level reassessed. Patient is alert, oriented x 3, equal unlabored respirations, skin warm/dry/pink. 17:34 Reassessment: Patient and/or family updated on plan of care and expected duration. Pain rs5 level reassessed. Patient is alert, oriented x 3, equal unlabored respirations, skin warm/dry/pink. Vital Signs: 13:39 BP 110 / 86; Pulse 75; Resp 16; Temp 97.7; Pulse Ox 99% on R/A; Weight 69.85 kg; Height cm10 5 ft. 5 in. ; Pain 5/10; 15:02 BP 121 / 77; Pulse 74; Resp 17; Pulse Ox 99% on R/A; rs5 17:50 BP 113 / 79; Pulse 81; Resp 17; Pulse Ox 100% on R/A; ll1 13:39 Body Mass Index 25.63 (69.85 kg, 165.1 cm) cm10 13:39 Pain Scale: Adult cm10 ED Course: 13:29 Patient arrived in ED. mg5 13:34 [facility] Dumont [facility]C [facility] kb 13:34 Leonardo Al MD is Attending Physician. kb 13:40 Triage completed. cm10 13:41 Arm band placed on right wrist. Patient placed in waiting room. EKG completed in cm10 triage. Results shown to MD. 13:41 EKG done, by ED staff, reviewed by Luanne LEAHY. cm10 13:42 Patient has correct armband on for positive identification. Bed in low position. Call rs5 light in reach. Side rails up X2. Client placed on continuous cardiac and pulse oximetry monitoring. NIBP monitoring applied. cafeteria monitor on. Pulse ox on. 13:42 No provider procedures requiring assistance completed. Patient maintains SpO2 rs5 saturation greater than 95% on room air. 13:52 CT Head Brain wo Cont In Process Unspecified. EDMS 13:58 XRAY Chest (1 view) In Process Unspecified. EDMS 14:04 Patient placed in an exam room, on a stretcher. ll1 14:05 MRI to bring patient to room 12 when done. ll1 14:20 Inserted saline lock: 20 gauge in left antecubital area, using aseptic technique. Blood rs5 collected. Flushed with 10 mL NS. 14:28 MRI - Brain Wo Cont In Process Unspecified. EDMS 14:57 Kenton Atkinson, RN is Primary Nurse. rs5 17:50 IV discontinued, intact, bleeding controlled, No redness/swelling at site. Pressure ll1 dressing applied. 17:51 Provided Education on: return to ED for worsening symptoms. ll1 Administered Medications: 14:10 Drug: Aspirin PO Chewable Tablet 324 mg PO once; 81 mg tablets x 4 Route: PO; rs5 17:51 Follow up: Response: No adverse reaction ll1 Medication: 15:02 VIS not applicable for this client. rs5 Outcome: 17:37 Discharge ordered by MD. rene 17:51 Discharged to home ambulatory, ll1 17:51 Condition: stable 17:51 Discharge instructions given to patient, Instructed on discharge instructions, follow up and referral plans. Demonstrated understanding of instructions, follow-up care, 17:51 Patient left the ED. ll1 Signatures: Dispatcher [employer] EDMS Luanne Dumont, ARMOND MOLD DUMPER-Lauro Cochran RN RN ll1 Kenton Atkinson RN RN rs5 Azucena Yates RN RN cm10 Mignon Chung mg5 Corrections: (The following items were deleted from the chart) 15:01 14:59 General: Appears in no apparent distress. uncomfortable, Behavior is calm, rs5 cooperative, rs5 15:01 14:59 Pain: Complains of pain in left sided chest pain Pain does not radiate. Pain rs5 currently is 5 out of 10 on a pain scale. Quality of pain is described as aching, Pain began 2-3 days ago. Is continuous, rs5 15:01 14:59 Neuro: Level of Consciousness is awake, alert, obeys commands, Oriented to rs5 person, place, time, situation, rs5 15:01 14:59 Cardiovascular: Patient's skin is warm and dry. Rhythm is regular rs5 rs5 15:01 14:59 Respiratory: Airway is patent Respiratory effort is even, unlabored, Respiratory rs5 pattern is regular, symmetrical, rs5 15:01 14:59 GI: Abdomen is round non-distended, Abd is soft and non tender X 4 quads. rs5 rs5 15:01 14:59 : No signs and/or symptoms were reported regarding the genitourinary system. rs5rs5 15:01 14:59 EENT: No signs and/or symptoms were reported regarding the EENT system. rs5 rs5 15:01 14:59 Derm: Skin is intact, Skin is pink, warm \T\ dry. rs5 rs5 15:01 13:42 Musculoskeletal: Range of motion: intact in all extremities, rs5 rs5
--- NOTE | 2024-08-11 17:38 | EDPHYS ---
Physician Documentation [facility] Name: Bill Goodrich Age: 48 yrs Sex: Male : 1975 Arrival Date: 08/11/2024 Time: 13:26 Bed 12 Private MD: ED Physician Leonardo Al HPI: 08/11 13:34 This 48 yrs old Male presents to ER via Unassigned with complaints of Chest kb Pain. 13:34 Pt is a 48 year old male who presents for left sided chest pain that has been kb intermittent for a couple of days. Reports decreased sensation to left arm with nausea today so he came in for evaluation. 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 . Historical: - Allergies: 13:40 NKA; cm10 - PMHx: 13:40 crohns disease; CVA; UC; cm10 - PSHx: 13:40 Appendectomy; loop recorder; cm10 - Immunization history:: Adult Immunizations up to date. - Infectious Disease History:: Denies. - Social history:: Smoking status: Patient denies any tobacco usage or history of. ROS: 13:34 Constitutional: As per HPI kb Exam: 13:34 Constitutional: This is a well developed, well nourished patient who is awake, alert, kb and in no acute distress. Head/Face: Normocephalic, atraumatic. ENT: Moist Mucous membranes Cardiovascular: Regular rate Respiratory: Respirations even and unlabored. No increased work of breathing. Talking in full sentences Abdomen/GI: Soft, non-tender. No distention Skin: Warm, dry with normal turgor. Normal color. MS/ Extremity: Pulses equal, no cyanosis. Neurovascular intact. Full, normal range of motion. Neuro: Awake and alert, GCS 15, oriented to person, place, time, and situation. 13:42 ECG was reviewed by the Attending Physician. kb Vital Signs: 13:39 BP 110 / 86; Pulse 75; Resp 16; Temp 97.7; Pulse Ox 99% on R/A; Weight 69.85 kg; Height cm10 5 ft. 5 in. ; Pain 5/10; 15:02 BP 121 / 77; Pulse 74; Resp 17; Pulse Ox 99% on R/A; rs5 17:50 BP 113 / 79; Pulse 81; Resp 17; Pulse Ox 100% on R/A; ll1 13:39 Body Mass Index 25.63 (69.85 kg, 165.1 cm) cm10 13:39 Pain Scale: Adult cm10 MDM: 13:34 Medical Screening Exam initiated kb 13:38 Data reviewed: vital signs, nurses notes. kb 17:36 Differential diagnosis: acute mi, arrhythmia, cva. Consideration of kb Admission/Observation Escalation of care including admission/observation considered. 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 Management of patient was discussed with the following: dr al. Historians other than the Patient: Spouse/Significant Other: . Counseling: I had a detailed discussion with the patient and/or guardian regarding the historical points, exam findings, and any diagnostic results supporting the discharge/admit diagnosis, lab results, radiology results, the need for outpatient follow up, a family practitioner, to return to the emergency department if symptoms worsen or persist or if there are any questions or concerns that arise at home. 08/11 13:41 Order name: Basic Metabolic Panel; Complete Time: 15:24 kb 08/11 13:41 Order name: CBC with Diff; Complete Time: 15:09 kb 08/11 13:41 Order name: Magnesium; Complete Time: 15:24 kb 08/11 13:41 Order name: NT PRO-BNP; Complete Time: 15:24 kb 08/11 13:41 Order name: Troponin HS; Complete Time: 15:24 kb 08/11 16:33 Order name: Troponin High Sensitivity; Complete Time: 17:36 kb 08/11 13:41 Order name: XRAY Chest (1 view); Complete Time: 14:06 kb 08/11 13:41 Order name: CT Head Brain wo Cont; Complete Time: 14:08 kb 08/11 13:41 Order name: MRI - Brain Wo Cont; Complete Time: 14:53 kb 08/11 13:41 Order name: EKG; Complete Time: 13:42 kb 08/11 13:41 Order name: Cardiac monitoring; Complete Time: 14:58 kb 08/11 13:41 Order name: EKG - Nurse/Tech; Complete Time: 13:52 kb 08/11 13:41 Order name: IV Saline Lock; Complete Time: 14:58 kb 08/11 13:41 Order name: Labs collected and sent; Complete Time: 14:58 kb 08/11 13:41 Order name: O2 Per Protocol; Complete Time: 14:58 kb 08/11 13:41 Order name: O2 Sat Monitoring; Complete Time: 14:58 kb EC:42 Rate is 68 beats/min. Rhythm is regular. QRS [place] is Normal. ID interval is normal at kb 154 msec. QRS interval is normal at 88 msec. QT interval is normal at 410 msec. Administered Medications: 14:10 Drug: Aspirin PO Chewable Tablet 324 mg PO once; 81 mg tablets x 4 Route: PO; rs5 17:51 Follow up: Response: No adverse reaction ll1 Disposition: 08/12 07:42 Co-signature as Attending Physician, Leonardo Al MD I reviewed the patient's care rn provided by the Advanced Practice Provider and agree with the diagnosis and treatment plan. Disposition Summary: 08/11/24 17:37 Discharge Ordered Notes: Location: Home kb Condition: Stable kb Diagnosis - Chest pain, unspecified kb Followup: kb - With: Emergency Department - When: As needed - Reason: Worsening of condition Followup: kb - With: Private Physician - When: 2 - 3 days - Reason: Recheck today's complaints, Continuance of care, Re-evaluation by your physician Discharge Instructions: - Discharge Summary Sheet kb - Nonspecific Chest Pain, Adult, [id number] kb Forms: - Work release form kb - Medication Reconciliation Form kb - Antibiotic Education kb - Prescription Opioid Use kb - Patient Portal Instructions kb - Leadership Thank You Letter kb Signatures: Dispatcher [employer] EDLuanne Fink, STORE MGR-C STORE MGR-Ckb Leonardo Al MD MD rn Sotelo, Ricky, RN RN rs5 Azucena Yates RN RN cm10 Lauro Bautista RN ll1 Corrections: (The following items were deleted from the chart) 08/11 13:42 13:42 BASIC METABOLIC PANEL+C.LAB.BRZ ordered. EDMS EDMS 13:42 13:42 CBC+H.LAB.BRZ ordered. EDMS EDMS 13:42 13:42 MAGNESIUM+C.LAB.BRZ ordered. EDMS EDMS 13:42 13:42 PROBNP+C.LAB.BRZ ordered. EDMS EDMS 13:42 13:42 Troponin High Sensitivity+C.LAB.BRZ ordered. EDMS EDMS 13:44 13:34 Pt is a 48 year old male who presents for left sided chest pain that has been kb intermittent for a couple of days. Reports decreased sensation to left arm with nausea today so he came in for evaluation. 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 . kb 16:34 16:34 Troponin High Sensitivity+C.LAB.BRZ ordered. EDMS EDMS
[2024-08-11 18:01] VITALS: TEMP 97.7
[2024-08-11 18:12] VITALS: BP 113/79; O2SAT 100
--- NOTE | 2024-08-12 11:09 | EKG ---
Test Date: 2024-08-11 Test Time: 13:36:58 Promotion Writer: ABELARDO MEASUREMENT RESULTS: Intervals: Rate: 68 IN: 154 QRSD: 88 QT: 386 QTc: 410 [place]: P: 38 IN: 154 QRS: 50 T: 20 INTERPRETIVE STATEMENTS: Normal sinus rhythm Normal ECG Compared to ECG 01/15/2023 19:57:46 Sinus tachycardia no longer present Electronically Signed On 08-12-24 11:07:45 CDT by Sam Smith
== END 2024-08-11 17:51 | disposition home or self-care (01) ==
LOC: ER 13:26
DX: R07.9 Chest pain, unspecified (principal); Z86.73 Personal history of transient ischemic attack (TIA), and cerebral infarction without residual deficits; R11.0 Nausea
CPT/HCPCS: 36415; 70450; 70551; 71045; 80048; 83735; 83880; 84484; 85025; 93005; 99285

== ENCOUNTER 2024-11-15 10:43 | Emergency (ER) | payer SELFPAY ==
[2024-11-15 11:12] LABS: Absolute Basophils 0.1 K/uL (0-0.5); Absolute Lymphocytes (CBC) 2.6 K/uL (0.7-4.9); Absolute Monocytes 0.8 K/uL (0.1-1.3); Absolute Neutrophil 7.2 K/uL (1.8-8.0); Basophils % 0.8 % (0-1.3); Eosinophils % 0.5 % (0-4.4); Hematocrit 42.9 % (39.6-49.0); Hemoglobin 14.6 g/dL (13.6-17.9); Lymphocytes % 24.6 % (15.3-44.8); MCHC 33.9 g/dL (32.0-36.0); MCV 85.3 fL (80-100); Monocytes % 7.4 % (3.3-12.3); Neutrophils % 66.7 % (41.7-73.7); Platelets 411 thou/uL (152-406); RBC Red Blood Cell Count 5.03 M/uL (4.33-5.43); Red Cell Distribution Width 15.9 % (12.1-15.2)
--- NOTE | 2024-11-15 11:13 | RAD REPORT ---
EXAM: CT brain without contrast HISTORY: Right arm weakness. COMPARISON: 2023 TECHNIQUE: Multiple contiguous axial images were obtained and a CT of the brain without contrast. Sagittal and coronal reformats were performed. Automated exposure control, adjustment of the mA and/or kV according to patient size, and/or itera tive reconstruction. Unless otherwise specified, incidental findings do not require dedicated imaging follow-u FINDINGS: An intracranial bleed is not seen Ventricles are normal caliber No extra-axial fluid collection noted No significant hypodensity within the brain No fluid within the visualized sinuses or mastoids noted. IMPRESSION: No acute intracranial abnormality noted. If the patient's symptoms persist MRI of the brain would be recommended. Taniya from the emergency room was notified at 11:04 AM November 15, 2024
[2024-11-15 11:20] LABS: PT Prothrombin Time 11.9 SECONDS (9.4-12.5); Protime INR 1.13
[2024-11-15 11:30] LABS: ALT/SGPT 16 U/L (16-61); AST/SGOT 14 U/L (15-37); Albumin 3.4 g/dL (3.4-5.0); Albumin/Globulin Ratio 0.8 (1.1-1.8); Alkaline Phosphatase 83 U/L (45-117); Anion Gap 7.7 mEq/L (5.0-15.0); BUN Blood Urea Nitrogen 10 mg/dL (7-18); Bicarbonate 26 mEq/L (21-32); Bilirubin Total 0.4 mg/dL (0.2-1.0); Globulin 4.1 g/dL (2.3-3.5); Glomerular Filtration Rate 107 ml/min (=/>90); Glucose Level 104 mg/dL (74-106); Magnesium 2.1 mg/dL (1.6-2.4); Potassium 3.7 mEq/L (3.5-5.1); Protein, Total 7.5 g/dL (6.4-8.2); Sodium Level 141 mEq/L (136-145)
[2024-11-15 11:31] LABS: Bilirubin Direct < 0.2 mg/dL (0-0.2); Bilirubin Indirect, Calculated 0.2 mg/dL (0.2-0.8); Troponin High Sensitivity < 3.0 pg/mL (<58.9)
--- NOTE | 2024-11-15 11:44 | RAD REPORT ---
EXAMINATION: CTA HEAD CLINICAL INDICATION: Right-sided weakness TECHNIQUE: Axial CT images were obtained through the head after 100 cc Isovue-370 intravenous contras t utilizing angiographic protocol with 3D post-processing (maximum intensity projection images, volume rendered images and/or shaded surface rendered images). One or more of the following dose red uction techniques were used: Automated exposure control, adjustment of the mA and/or kV according to patient size, and/or iterative reconstruction. Unless otherwise specified, incidental findings do not require dedicated imaging follow-up. COMPARISON: None FINDINGS: Distal internal carotid, basilar, anterior cerebral, middle cerebral and posterior cerebral arteries do not demonstrate a significant stenosis An aneurysm not noted. No large vessel occlusion IMPRESSION: No acute vascular abnormality displayed
--- NOTE | 2024-11-15 11:45 | RAD REPORT ---
EXAMINATION: Neck Angio CLINICAL INDICATION: Right-sided weakness TECHNIQUE: Axial CT images were obtained from the aortic arch to the skull base after intravenous adm inistration of 100 cc Isovue-370 utilizing angiographic protocol. Multiplanar reformats, as well as 3D post-processing (maximum intensity projection images, volume rendered images and/or shaded surface rendered images) were generated and reviewed. One or more of the following dose reduction techniques were used: Automated exposure control, adjustment of the mA and/or kV according to patient size, and/or iterative reconstruction. Unless otherwise specified, incidental findings do not require dedicated imaging follow-up. COMPARISON: 2021 FINDINGS: Great vessels unremarkable Common carotid, internal carotid and external carotid arteries do not demonstrate a significant abnor mality. Vertebral arteries unremarkable No significant stenosis noted. A dissection is not seen. Methods for NASCET criteria: Mild stenosis, 0% to 49%; Moderate stenosis 50% to 69%; Severe stenosis, 70% to 99% IMPRESSION: No acute vascular abnormality displayed
--- NOTE | 2024-11-15 11:46 | RAD REPORT ---
Procedure: Chest Single View HISTORY: Numbness COMPARISON: 2023 FINDINGS: The lungs appear clear of acute infiltrate. No significant pleural effusion noted. The heart is normal size. IMPRESSION: No acute abnormality is displayed.
--- NOTE | 2024-11-15 13:09 | ER ---
Nurse's Notes [facility] Name: Bill Goodrich Age: 48 yrs Sex: Male : 1975 Arrival Date: 11/15/2024 Time: 10:43 Bed 2 Private MD: Diagnosis: Lesion of radial nerve, right upper limb Presentation: 11/15 10:53 Chief complaint: Patient states: Right sided arm weakness, went to bed around 2300 last jl7 night normal, woke at 0300 with numbness to right arm, went back to sleep and woke this morning with continued numbness and weakness. Code stroke called. 10:53 Coronavirus screen: At this time, the client does not indicate any symptoms associated jl7 with coronavirus-19. Ebola Screen: No symptoms or risks identified at this time. Initial Sepsis Screen: Does the patient meet any 2 criteria? No. Patient's initial sepsis screen is negative. Does the patient have a suspected source of infection? No. Patient's initial sepsis screen is negative. Risk Assessment: Do you want to hurt yourself or someone else? Patient reports no desire to harm self or others. Onset of symptoms is unknown. Care prior to arrival: None. 10:53 Method Of Arrival: Ambulatory jl7 10:53 Acuity: PRISCILA 2 jl7 11:24 An acute neurological deficit is present. The charge nurse has been notified. The jl7 patient has been moved to a treatment area. Pre-hospital glucose is not applicable to this patient. Triage Assessment: 10:53 General: Appears in no apparent distress. uncomfortable, Behavior is calm, cooperative, jl7 appropriate for age. Pain: Denies pain. 10:53 The onset of the patients symptoms was November 14, 2024 at 23:00. Neuro: Reports jl7 weakness in right arm. Stroke Activation: Symptom onset > 6 hours Physician: ED Attending; Name: Maame; Notified At: 10:53; Arrived At: 10:53 Physician: Mid-Level Provider; Name: ; Notified At: 10:53; Arrived At: Physician: [not used]; Name: ; Notified At: ; Arrived At: Physician: [not used]; Name: ; Notified At: ; Arrived At: Physician: [not used]; Name: ; Notified At: ; Arrived At: Historical: - Allergies: 11:22 NKA; jl7 - Home Meds: 11:22 aspirin 81 mg oral capsule [Active]; jl7 - PMHx: 11:22 crohns disease; CVA; UC; jl7 - PSHx: 11:22 Appendectomy; loop recorder; jl7 - Immunization history:: Adult Immunizations unknown. - Infectious Disease History:: Denies. - Social history:: Smoking status: Patient/guardian denies using tobacco, the patient reports quitting approximately 2 years ago. Screenin:24 VAN Screening: Arm Drift: Patient shows no arm weakness. Patient is VAN negative. es3 Visual Disturbance: No visual disturbance noted. Aphasia: No aphasia noted. Neglect: No neglect noted. 11:24 [facility] Swallow Protocol Brief Cognitive Screen What is your name? Normal, Where are you es3 right now? Normal, What year is it? Normal. Oral Mechanism Examination Facial Symmetry: Normal, Motion: Normal, Lip Closure: Normal, Oral Mechanism Result: Normal. 3 oz Water Swallow Challenge: Pt able to drink all water without stopping, coughing, choking or throat clearing: Yes Result: PASS Notified: Dandre Isabel DO. 12:53 [facility] ED Fall Risk Assessment (Adult) History of falling in the last 3 months, ko1 including since admission No falls in past 3 months (0 pts) Confusion or Disorientation No (0 pts) Intoxicated or Sedated No (0 pts) Impaired Gait No (0 pts) Mobility Assist Device Used No (0 pt) Altered Elimination No (0 pt) Score/Fall Risk Level 0 - 2 = Low Risk Oriented to surroundings, Maintained a safe environment, Educated pt \T\ family on fall prevention, incl call for assistance when getting out of bed, Assessed \T\ reinforced patient's understanding of fall precautions, Provided non-skid footwear, Hourly rounding (assess needs \T\ fall precautionary measures) done. Abuse screen: Denies threats or abuse. Denies injuries from another. Nutritional screening: No deficits noted. Tuberculosis screening: No symptoms or risk factors identified. Assessment: 11:15 VAN Scoring: Arm Drift: Patients demonstrates NO arm weakness. Patient is VAN Negative. jl7 [facility] Swallow Protocol Exclusion Criteria: Unable to remain alert for testing: Yes NPO for medical/surgical reason by provider order Yes Head-of-bed restricted <30 degrees Yes Tracheostomy tube present Yes No thin liquids due to preexisting dysphagia/baseline modified diet thickened liquids Yes (STOP, ST Cons) Brief Cognitive Screen What is your name? Normal, Where are you right now? Normal, What year is it? Normal. Oral Mechanism Examination Facial Symmetry: Normal, Motion: Normal, Lip Closure: Normal, Oral Mechanism Result: Normal. 3 oz Water Swallow Challenge: Pt able to drink all water without stopping, coughing, choking or throat clearing: Yes Result: PASS. 11:15 TNKase (Tenecteplase) Screening: Contraindications: Patient reports onset of signs and jl7 symptoms of stroke greater than 6 hours ago: Yes. 11:15 [facility] Swallow Protocol Notified: Dandre Isabel DO. jl7 Vital Signs: 10:53 BP 132 / 81; Pulse 70; Resp 15; Temp 97.2; Pulse Ox 100% ; Weight 68.04 kg; Height 5 jl7 ft. 5 in. ; Pain 0/10; 12:53 BP 107 / 79; Pulse 68; Resp 14; Pulse Ox 98% on R/A; ko1 13:11 BP 116 / 86; Pulse 89; Resp 15; Pulse Ox 100% on R/A; ko1 10:53 Body Mass Index 24.96 (68.04 kg, 165.1 cm) jl7 10:53 Pain Scale: Adult jl7 NIH Stroke Scale Scores: 10:53 NIHSS Score: 0 jl7 11:24 NIHSS Score: 0 es3 11:24 NIHSS Score: 0 ms3 ED Course: 10:45 Patient arrived in ED. im 10:53 Arm band placed on right wrist. jl7 10:54 Dandre Isabel DO is Attending Physician. ms3 10:57 Karlo Garcia, RN is Primary Nurse. bp 11:10 CT Head Angio In Process Unspecified. EDMS 11:10 CT Neck Angio In Process Unspecified. EDMS 11:11 CT Stroke Brain w/o Contrast In Process Unspecified. EDMS 11:15 Initial lab(s) drawn, by ED staff, sent to lab. EKG done, by ED staff, reviewed by ko1 Dandre Isabel DO. Inserted saline lock: 20 gauge in left antecubital area, using aseptic technique. Blood collected. Flushed with 10 mL NS. 11:16 Basic Metabolic Panel Sent. ko1 11:16 Hepatic Function Sent. ko1 11:16 High Sensitivity Troponin Sent. ko1 11:16 Magnesium Sent. ko1 11:16 Protime (+inr) Sent. ko1 11:16 Ptt, Activated Sent. ko1 11:22 Triage completed. jl7 11:31 Stroke CXR 1 View In Process Unspecified. EDMS 12:53 No provider procedures requiring assistance completed. ko1 12:53 Patient has correct armband on for positive identification. Bed in low position. Call ko1 light in reach. Side rails up X2. Provided Education on: labs. Client placed on continuous cardiac and pulse oximetry monitoring. NIBP monitoring applied. classroom monitor on. Door closed. Noise minimized. Lights dimmed. Warm blanket given. Pillow given. 13:03 Lamont Painting MD is Referral Physician. ms3 13:11 IV discontinued, intact, bleeding controlled, No redness/swelling at site. Pressure ko1 dressing applied. Administered Medications: No medications were administered Medication: 11:27 VIS not applicable for this client. jl7 Point of Care Testing: Blood Glucose: 11:14 Blood Glucose: 107 mg/dL; jl7 Ranges: Outcome: 13:08 Discharge ordered by . ms3 13:11 Discharged to home ambulatory, ko1 13:11 Condition: stable 13:11 Discharge instructions given to patient, Instructed on discharge instructions, follow up and referral plans. medication usage, Demonstrated understanding of instructions, follow-up care, medications, Prescriptions given X 1, 13:18 Patient left the ED. ko1 NIH Stroke Scale - NIH Stroke Score Date: 11/15/2024 Time: 10:53 Total Score = 0 10. Dysarthria (speech clarity - read or repeat words) - 0(Normal) 11. Extinction and Inattention (visual/tactile/auditory/spatial/personal) - 0(No abnormality) 1a. Level of Consciousness (LOC) - 0(Alert) 1b. Level of Consciousness (LOC) (Month \T\ Age) - 0(Both) 1c. LOC Commands (Open \T\ Closes Eyes/Ice Skater) - 0(Both) 2. Best Gaze (Lateral Gaze Paresis) - 0(Normal) 3. Visual Field Loss - 0(No visual loss) 4. Facial Palsy - 0(Normal) 5a. Left Arm: Motor (10-second hold) - 0(No drift) 5b. Right Arm: Motor (10-second hold) - 0(No drift) 6a. Left Leg: Motor (5-second hold - always test supine) - 0(No drift) 6b. Right Leg: Motor (5-second hold - always test supine) - 0(No drift) 7. Limb Ataxia (finger/nose \T\ heel/morris - test with eyes open) - 0(Absent) 8. Sensory Loss (pinprick arms/legs/face) - 0(Normal) 9. Best Language: Aphasia (description/naming/reading) - 0(No aphasia) Initials: jl7 NIH Stroke Scale - NIH Stroke Score Date: 11/15/2024 Time: 11:24 Total Score = 0 10. Dysarthria (speech clarity - read or repeat words) - 0(Normal) 11. Extinction and Inattention (visual/tactile/auditory/spatial/personal) - 0(No abnormality) 1a. Level of Consciousness (LOC) - 0(Alert) 1b. Level of Consciousness (LOC) (Month \T\ Age) - 0(Both) 1c. LOC Commands (Open \T\ Closes Eyes/Ice Skater) - 0(Both) 2. Best Gaze (Lateral Gaze Paresis) - 0(Normal) 3. Visual Field Loss - 0(No visual loss) 4. Facial Palsy - 0(Normal) 5a. Left Arm: Motor (10-second hold) - 0(No drift) 5b. Right Arm: Motor (10-second hold) - 0(No drift) 6a. Left Leg: Motor (5-second hold - always test supine) - 0(No drift) 6b. Right Leg: Motor (5-second hold - always test supine) - 0(No drift) 7. Limb Ataxia (finger/nose \T\ heel/morris - test with eyes open) - 0(Absent) 8. Sensory Loss (pinprick arms/legs/face) - 0(Normal) 9. Best Language: Aphasia (description/naming/reading) - 0(No aphasia) Initials: es3 NIH Stroke Scale - NIH Stroke Score Date: 11/15/2024 Time: 11:24 Total Score = 0 10. Dysarthria (speech clarity - read or repeat words) - 0(Normal) 11. Extinction and Inattention (visual/tactile/auditory/spatial/personal) - 0(No abnormality) 1a. Level of Consciousness (LOC) - 0(Alert) 1b. Level of Consciousness (LOC) (Month \T\ Age) - 0(Both) 1c. LOC Commands (Open \T\ Closes Eyes/Ice Skater) - 0(Both) 2. Best Gaze (Lateral Gaze Paresis) - 0(Normal) 3. Visual Field Loss - 0(No visual loss) 4. Facial Palsy - 0(Normal) 5a. Left Arm: Motor (10-second hold) - 0(No drift) 5b. Right Arm: Motor (10-second hold) - 0(No drift) 6a. Left Leg: Motor (5-second hold - always test supine) - 0(No drift) 6b. Right Leg: Motor (5-second hold - always test supine) - 0(No drift) 7. Limb Ataxia (finger/nose \T\ heel/morris - test with eyes open) - 0(Absent) 8. Sensory Loss (pinprick arms/legs/face) - 0(Normal) 9. Best Language: Aphasia (description/naming/reading) - 0(No aphasia) Initials: ms3 Signatures: Dispatcher [employer] EDGregorio Garcia RN MARY jl7 Karlo Garcia, RN RN Dandre Alaniz DO DO ms3 Kristina Mckenzie, RN RN ko1 Olivia Quezada Emily, RN RN es3 Corrections: (The following items were deleted from the chart) 11: 11:24 The onset of the patients symptoms was November 14, 2024 at 23:00 [place] [id number] 11:24 Neuro: Reports weakness in right arm [place] [id number] 11: 11:25 NIHSS Score: 0 [place] [id number]
--- NOTE | 2024-11-15 13:09 | EDPHYS ---
Physician Documentation [facility] Name: Bill Goodrich Age: 48 yrs Sex: Male : 1975 Arrival Date: 11/15/2024 Time: 10:43 Bed 2 Private MD: ED Physician Dandre Isabel HPI: 11/15 11:24 This 48 yrs old Male presents to ER via Ambulatory with complaints of Numbness ms3 Of Arm - Right. 11:24 Bill Goodrich a 48 year old male presenting to the Emergency Department with right-hand ms3 numbness from the elbow to the hand, which began when he woke up at 3 a.m. today. He reports difficulty with hand function, particularly while trying to brush his teeth. The patient has a history of a stroke in 2022, for which he has a loop recorder and underwent a PFO closure. He reports that his previous stroke affected the whole left side of his body. He denies any current pain and reports no other symptoms. . Historical: - Allergies: 11:22 NKA; jl7 - Home Meds: 11:22 aspirin 81 mg oral capsule [Active]; jl7 - PMHx: 11:22 crohns disease; CVA; UC; jl7 - PSHx: 11:22 Appendectomy; loop recorder; jl7 - Immunization history:: Adult Immunizations unknown. - Infectious Disease History:: Denies. - Social history:: Smoking status: Patient/guardian denies using tobacco, the patient reports quitting approximately 2 years ago. ROS: 11:24 Constitutional: Negative for fever, and chills. Cardiovascular: Negative for chest ms3 pain, and palpitations. Respiratory: Negative for shortness of breath, cough, wheezing, and pleuritic chest pain, Back: Negative for injury and pain, MS/Extremity: Negative for injury and deformity, Skin: Negative for injury, rash, and discoloration, 11:24 Neuro: Positive for numbness, of the right arm, Exam: 11:24 Constitutional: This is a well developed, well nourished patient who is awake, alert, ms3 and in no acute distress. Cardiovascular: Regular rate and rhythm with a normal S1 and S2. No gallops, murmurs, or rubs. Normal PMI, no JVD. No pulse deficits. Respiratory: Lungs have equal breath sounds bilaterally, clear to auscultation and percussion. No rales, rhonchi or wheezes noted. No increased work of breathing, no retractions or nasal flaring. Abdomen/GI: Soft, non-tender, with normal bowel sounds. No distension or tympany. No guarding or rebound. No evidence of tenderness throughout. Skin: Warm, dry with normal turgor. Normal color with no rashes, no lesions, and no evidence of cellulitis. MS/ Extremity: Pulses equal, no cyanosis. Neurovascular intact. Full, normal range of motion. Neuro: Awake and alert, GCS 15, oriented to person, place, time, and situation. Cranial nerves II-XII grossly intact. Motor strength 5/5 in all extremities. Sensory grossly intact. Cerebellar exam normal. Normal gait. 11:26 ECG was reviewed by the Attending Physician. ms3 Vital Signs: 10:53 BP 132 / 81; Pulse 70; Resp 15; Temp 97.2; Pulse Ox 100% ; Weight 68.04 kg; Height 5 jl7 ft. 5 in. ; Pain 0/10; 12:53 BP 107 / 79; Pulse 68; Resp 14; Pulse Ox 98% on R/A; ko1 13:11 BP 116 / 86; Pulse 89; Resp 15; Pulse Ox 100% on R/A; ko1 10:53 Body Mass Index 24.96 (68.04 kg, 165.1 cm) jl7 10:53 Pain Scale: Adult jl7 NIH Stroke Scale Scores: 10:53 NIHSS Score: 0 jl7 11:24 NIHSS Score: 0 es3 11:24 NIHSS Score: 0 ms3 MDM: 10:54 Medical Screening Exam initiated ms3 11:26 Differential diagnosis: CVA vs Electrolyte abnormality vs peripheral neuropathy. ms3 13:09 Data reviewed: vital signs, nurses notes, lab test result(s), EKG, radiologic studies, ms3 and as a result, I will discharge patient. Management of patient was discussed with the following: Die Trimmer: Dr Painting- Saw patient in the Emergency Department and patient with radial nerve palsy. Independent interpretation of the following test(s) in the Emergency Department EKG: See my EKG interpretation above. Counseling: I had a detailed discussion with the patient and/or guardian regarding the historical points, exam findings, and any diagnostic results supporting the discharge/admit diagnosis, lab results, radiology results, the need for outpatient follow up, to return to the emergency department if symptoms worsen or persist or if there are any questions or concerns that arise at home. Special discussion: I discussed with the patient/guardian in detail that at this point there is no indication for admission to the hospital. It is understood, however, that if the symptoms persist or worsen the patient needs to return immediately for re-evaluation. ED course: Discussed physical exam findings, CT, labs with the patient and Dr. Painting. Patient to follow-up with Dr. Painting in 2 to 3 days. Patient understands agrees with plan. All questions were answered. On reevaluation patient with difficulty extending fingers and wrist. Prognosis discussed with patient by Dr. Painting.. 11/15 10:54 Order name: Basic Metabolic Panel; Complete Time: 12:32 ms3 11/15 10:54 Order name: CBC with Diff; Complete Time: 12:32 ms3 11/15 10:54 Order name: Hepatic Function; Complete Time: 12:32 ms3 11/15 10:54 Order name: High Sensitivity Troponin; Complete Time: 12:32 ms3 11/15 10:54 Order name: Magnesium; Complete Time: 12:32 ms3 11/15 10:54 Order name: Protime (+inr); Complete Time: 12:32 ms3 11/15 10:54 Order name: Ptt, Activated; Complete Time: 12:32 ms3 11/15 11:27 Order name: Glucose, Ancillary Testing; Complete Time: 12:32 EDMS 11/15 10:54 Order name: CT Head Angio; Complete Time: 12:32 ms3 11/15 10:54 Order name: CT Neck Angio; Complete Time: 12:32 ms3 11/15 10:54 Order name: CT Stroke Brain w/o Contrast; Complete Time: 12:32 ms3 11/15 10:54 Order name: Stroke CXR 1 View; Complete Time: 12:32 ms3 11/15 10:54 Order name: Accucheck; Complete Time: 11:16 ms3 11/15 10:54 Order name: Cardiac monitoring; Complete Time: 11:09 ms3 11/15 10:54 Order name: EKG - Nurse/Tech; Complete Time: 11:16 ms3 11/15 10:54 Order name: IV Saline Lock; Complete Time: 11:16 ms3 11/15 10:54 Order name: Labs collected and sent; Complete Time: : ms3 11/15 10:54 Order name: NPO; Complete Time: : ms3 11/15 10:54 Order name: O2 Per Protocol; Complete Time: : ms3 11/15 10:54 Order name: O2 Sat Monitoring; Complete Time: : ms3 11/15 10:54 Order name: Stroke Swallow Screen; Complete Time: : ms3 EC: Rate is 60 beats/min. Rhythm is regular. QRS [place] is Normal. MS interval is normal. QRS ms3 interval is normal. Clinical impression: Normal ECG. Interpreted by me. Reviewed by me. Administered Medications: No medications were administered Point of Care Testing: Blood Glucose: : Blood Glucose: 107 mg/dL; jl7 Ranges: Critical Glucose Levels:Adult <50 mg/dl or >400 mg/dl <40 mg/dl or >180 mg/dl Disposition Summary: 11/15/24 13:08 Discharge Ordered Notes: Location: Home ms3 Condition: Stable ms3 Diagnosis - Lesion of radial nerve, right upper limb ms3 Followup: ms3 - With: Lamont Painting MD - When: 2 - 3 days - Reason: Recheck today's complaints Discharge Instructions: - Discharge Summary Sheet ms3 - Radial Nerve Palsy ms3 Forms: - Work release form bd - Medication Reconciliation Form ms3 - Antibiotic Education ms3 - Prescription Opioid Use ms3 - Patient Portal Instructions ms3 - Leadership Thank You Letter ms3 Prescriptions: - Folic Acid 1 mg Oral Tablet - take 1 tablet ORAL route once daily; 30 tablet; Refills: 0, Product Selection ms3 Permitted NIH Stroke Scale - NIH Stroke Score Date: 11/15/2024 Time: 10:53 Total Score = 0 10. Dysarthria (speech clarity - read or repeat words) - 0(Normal) 11. Extinction and Inattention (visual/tactile/auditory/spatial/personal) - 0(No abnormality) 1a. Level of Consciousness (LOC) - 0(Alert) 1b. Level of Consciousness (LOC) (Month \T\ Age) - 0(Both) 1c. LOC Commands (Open \T\ Closes Eyes/Application Spec) - 0(Both) 2. Best Gaze (Lateral Gaze Paresis) - 0(Normal) 3. Visual Field Loss - 0(No visual loss) 4. Facial Palsy - 0(Normal) 5a. Left Arm: Motor (10-second hold) - 0(No drift) 5b. Right Arm: Motor (10-second hold) - 0(No drift) 6a. Left Leg: Motor (5-second hold - always test supine) - 0(No drift) 6b. Right Leg: Motor (5-second hold - always test supine) - 0(No drift) 7. Limb Ataxia (finger/nose \T\ heel/morris - test with eyes open) - 0(Absent) 8. Sensory Loss (pinprick arms/legs/face) - 0(Normal) 9. Best Language: Aphasia (description/naming/reading) - 0(No aphasia) Initials: jl7 NIH Stroke Scale - NIH Stroke Score Date: 11/15/2024 Time: 11:24 Total Score = 0 10. Dysarthria (speech clarity - read or repeat words) - 0(Normal) 11. Extinction and Inattention (visual/tactile/auditory/spatial/personal) - 0(No abnormality) 1a. Level of Consciousness (LOC) - 0(Alert) 1b. Level of Consciousness (LOC) (Month \T\ Age) - 0(Both) 1c. LOC Commands (Open \T\ Closes Eyes/Application Spec) - 0(Both) 2. Best Gaze (Lateral Gaze Paresis) - 0(Normal) 3. Visual Field Loss - 0(No visual loss) 4. Facial Palsy - 0(Normal) 5a. Left Arm: Motor (10-second hold) - 0(No drift) 5b. Right Arm: Motor (10-second hold) - 0(No drift) 6a. Left Leg: Motor (5-second hold - always test supine) - 0(No drift) 6b. Right Leg: Motor (5-second hold - always test supine) - 0(No drift) 7. Limb Ataxia (finger/nose \T\ heel/morris - test with eyes open) - 0(Absent) 8. Sensory Loss (pinprick arms/legs/face) - 0(Normal) 9. Best Language: Aphasia (description/naming/reading) - 0(No aphasia) Initials: es3 NIH Stroke Scale - NIH Stroke Score Date: 11/15/2024 Time: 11:24 Total Score = 0 10. Dysarthria (speech clarity - read or repeat words) - 0(Normal) 11. Extinction and Inattention (visual/tactile/auditory/spatial/personal) - 0(No abnormality) 1a. Level of Consciousness (LOC) - 0(Alert) 1b. Level of Consciousness (LOC) (Month \T\ Age) - 0(Both) 1c. LOC Commands (Open \T\ Closes Eyes/Application Spec) - 0(Both) 2. Best Gaze (Lateral Gaze Paresis) - 0(Normal) 3. Visual Field Loss - 0(No visual loss) 4. Facial Palsy - 0(Normal) 5a. Left Arm: Motor (10-second hold) - 0(No drift) 5b. Right Arm: Motor (10-second hold) - 0(No drift) 6a. Left Leg: Motor (5-second hold - always test supine) - 0(No drift) 6b. Right Leg: Motor (5-second hold - always test supine) - 0(No drift) 7. Limb Ataxia (finger/nose \T\ heel/morris - test with eyes open) - 0(Absent) 8. Sensory Loss (pinprick arms/legs/face) - 0(Normal) 9. Best Language: Aphasia (description/naming/reading) - 0(No aphasia) Initials: ms3 Signatures: Dispatcher [employer] EDGregorio Garcia, RN RN jl7 Dandre Isabel DO DO ms3 Corrections: (The following items were deleted from the chart) 10:55 10:55 BASIC METABOLIC PANEL+C.LAB.BRZ ordered. EDMS EDMS 10:55 10:55 CBC+H.LAB.BRZ ordered. EDMS EDMS 10:55 10:55 HEPATIC FUNCTION+C.LAB.BRZ ordered. EDMS EDMS 10:55 10:55 Troponin High Sensitivity+C.LAB.BRZ ordered. EDMS EDMS 10:55 10:55 MAGNESIUM+C.LAB.BRZ ordered. EDMS EDMS 10:55 10:55 PROTIME (+INR)+COAG.LAB.BRZ ordered. EDMS EDMS 10:55 10:55 PTT, ACTIVATED+COAG.LAB.BRZ ordered. EDMS EDMS 10:55 10:55 URINE DRUG SCREEN+UC.LAB.BRZ ordered. EDMS EDMS 10:55 10:55 Head Angio+CT.RAD.BRZ ordered. EDMS EDMS 10:55 10:55 Neck Angio+CT.RAD.BRZ ordered. EDMS EDMS 10:55 10:55 CT-STROKE BRAIN W/O CONTRAST+CT.RAD.BRZ ordered. EDMS EDMS 10:55 10:55 Chest Single View+RAD.RAD.BRZ ordered. EDMS EDMS
[2024-11-15 13:31] VITALS: TEMP 97.2
[2024-11-15 13:42] VITALS: BP 116/86; O2SAT 100
--- NOTE | 2024-11-16 12:14 | EKG ---
Test Date: 2024-11-15 Test Time: 11:14:29 Dentures Lab Technician: JAVAN MEASUREMENT RESULTS: Intervals: Rate: 60 [place]: 156 QRSD: 86 QT: 414 QTc: 414 [place]: P: 36 [place]: 156 QRS: 38 T: 57 INTERPRETIVE STATEMENTS: Normal sinus rhythm Normal ECG Compared to ECG 08/11/2024 13:36:58 No significant changes Electronically Signed On 11-16-24 12:12:18 GOVERNMENT CONTRACTS MANAGER by Sam Smith
--- NOTE | 2024-11-16 15:09 | CON ---
Reason For Consultation: Consultation called because of possible stroke. History Of Present Illness: Mr. Goodrich is a 48-year-old right-handed patient with history of alcohol use, Crohn disease, reported prior stroke affecting his left body, who was drinking alcohol over the weekend on Friday when he fell asleep in a chair and woke up around 3:00 a.m., noting diff iculty moving his right hand. He was unable to hold objects as things would fall out of the hand. T here was a question as to if there was numbness all the way from the neck into the arm, but mostly un able to grasp objects. He came to [facility] where he was evaluated by head CT scan, which showed no acute ischemic hemorrhagic changes. Blood work showed essentially no significant abnormali ties. Past Medical History: Crohn disease, stroke, and ulcerative colitis. Allergies: NO KNOWN DRUG ALLERGIES. Medications: At home, occasional aspirin 81 mg daily. Past Surgical History: Appendicectomy, has a loop recorder placed. Family History: Noncontributory. Review of Systems: Prior to his issue of the right-sided weakness, he notes that there was a chronic left-sided stroke f rom which he has recovered fairly well. He has no fevers, chills, nausea, vomiting. No myalgias, ar thralgias. No rash, headache, weight change. It is noted that in the emergency room, the patient's NIH Stroke Scale was always 0 when it was assessed on 3 occasions. Physical Examination: Vital Signs: Blood pressure 132/81, pulse 70, respiratory rate 15, temperature 97.2, O2 saturation 1 00%. Weight 168.04 kg, height 5 feet 5 inches. General: Mr. Goodrich is lying in the emergency room [facility]. HEENT: He is normocephalic, atraumatic. Sclerae anicteric. Oropharynx is moist. Neck: Supple. Chest: Clear. Heart: Regular. Extremities: Show no clubbing, cyanosis, or edema. Neurological: Cranial nerves, no focal deficits there. In the right upper extremity, he has a signi ficant right wrist drop, difficulty trying to list the right wrist up around 1/5 to 2/5. Finger exte nsion also 1/5 to 2/5. Keysmith strength on the right is 5/5, wrist flexion 5/5, biceps 5/5, deltoid 5/5 , triceps 5/5. On his left upper extremity, 5/5 proximally and distally and on both lower extremitie s 5/5 proximally and distally. He has intact sensation. Reflexes coordination. Assessment And Plan: Mr. 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 The patient was instructed to stop drinking alcohol, to take a simply B complex along with vitamin C and D and the levels were given to the patient. He was instructed that it may take a few weeks for him to recover, use of that arm full y. 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 This was communicated to the patient. A prescription was written with such informat ion in request for the patient thus far and also a written statement was given. The patient may foll ow up in Dr. Painting's clinic in a month. DAPHNEY/JOSE Voice ID: [id number] Report ID: [id number]
== END 2024-11-15 13:18 | disposition home or self-care (01) ==
LOC: ER 10:43
DX: G56.31 Lesion of radial nerve, right upper limb (principal); Z86.73 Personal history of transient ischemic attack (TIA), and cerebral infarction without residual deficits; Z79.82 Long term (current) use of aspirin
CPT/HCPCS: 36415; 70450; 70496; 70498; 71045; 80048; 80076; 82947; 83735; 84484; 85025; 85610; 85730; 93005; 99285; Q9967